=== PATIENT | female | born 1960 | race Caucasian/White ===

== ENCOUNTER 2016-04-10 04:37 | Observation (INO) ==
--- NOTE | 2016-04-10 05:05 | Emergency Department Note ---
I, Temitope Funez, am scribing for, and in the presence of, Rajwinder Capone DO 05: 01. I, Rajwinder Capone DO, personally performed the services described in this documentation, ascribed by Temitope Funez in my presence, and it is both accurate and complete . Arrival - Arrival ED Nursing Triage Note: pt to triage c/o n/v/d and reproducable chest wall pain since yesterday morning. pt denies fever, resp 18 , unlabored. sats 97 on room air Mode of Arrival: Wheelchair Limitations: No Limitations Source: Patient - History of Present Illness Onset (ago): hour(s) Consistency: constant Quality: sharp <Rajwinder Capone - Last Filed: 04/10/16 05:05> <Gordo Nobles - Last Filed: 04/10/16 07:51> - Arrival Chief Complaint: Nausea/Vomiting/Diarrhea Stated Complaint: CP/SOB/PAIN DOWN LEFT SIDE Time Seen by Provider: 04/10/16 04:51 - History of Present Illness HPI Narrative: Pt is a 55 y/o female that came to the ED with c/o reproducible chest pain that radiated down both arms and to her left leg that began about an hour ago. Pt rates her chest pain an 8/10. She states when she got to ED she felt SOB. Pt also reports she had breast surgery to remove a spot in [place] [address] Babcock that is painful. No other complaints/pain in ED. (Temitope Funez) Pt is a 55 y/o female that came to the ED with c/o reproducible chest pain that radiated down both arms and to her left leg that began about an hour ago. Pt rates her chest pain an 8/10. She states when she got to ED she felt SOB. Pt also reports she had breast surgery to remove a spot in October [address] Babcock that is painful. No other complaints/pain in ED. (Rajwinder Capone) Allergies/Adverse Reactions: Allergies Allergy/AdvReac Type Severity Reaction Status Date / Time atorvastatin [From Lipitor] Allergy Unknown/Unable Verified 04/10/16 04:44 to obtain azithromycin [From Zithromax] Allergy Unknown/Unable Verified 04/10/16 04:44 to obtain metformin Allergy ITCHING Verified 04/10/16 04:44 niacin Allergy ITCHING Verified 04/10/16 04:44 Penicillins AdvReac Nausea Verified 04/10/16 04:44 contrast dye Allergy Unknown/Unable Uncoded 04/10/16 04:44 to obtain Home Medications: Home Medications Medication Instructions Recorded Confirmed Type Escitalopram [Lexapro] 20 mg PO DAILY #30 tablet 11/14/15 04/10/16 Rx Gabapentin Cap/Tab [Neurontin 300 mg PO BEDTIME #90 capsule 11/14/15 04/10/16 Rx Cap/Tab] Levothyroxine Tab [Synthroid Tab] 200 mcg PO DAILY@0700 #30 tablet 11/14/15 Rx Lisinopril [Prinivil] 10 mg PO DAILY #30 tablet 11/14/15 04/10/16 Rx Topiramate [Topamax] 100 mg PO BID #60 tablet 11/14/15 04/10/16 Rx Hum Insulin NPH/Reg Insulin Hm 20 units SUBCUT AC 04/10/16 04/10/16 History [NovoLIN 70/30] Insulin NPH/Regular 70/30 [HumuLIN 15 unit SUBCUT BEDTIME 04/10/16 04/10/16 History 70/30] glyBURIDE [Glyburide] 10 mg PO BID 04/10/16 04/10/16 History Review of System - Review of System 12 point system: reviewed and no additional remarkable complaints except as stated - Review of System Constitutional: Absent: fever Cardiovascular: Present: chest pain, other (SOB) Gastrointestinal: Absent: abdominal pain Musculoskeletal: Present: arm pain (radiating left and right arm pain from chest pain), back pain (radiating left leg pain from chest pain) Skin: Absent: rash Neurological: Absent: headache <Rajwinder Capone - Last Filed: 04/10/16 05:05> Medical,Surgical,& Family Hx - Medical History Cardio: History of: Cardiac Dysrhythmia, Hypertension, Cardiovascular Problems ( ASD status post percutaneous repair. dr light last visit 2014.) Psychological: History of: Depression No history of: Anxiety Disorders, ADHD, Behavior Problems, Bipolar Disorder, Previous Suicide Attempt, Psychiatric/Substance Abuse Tx, Schizophrenia, Violent Behavior, Psychiatric Problems Neurology: History of: Cerebrovascular Accident (2010), Migraine, Seizures ( "silent seizures"), TIA HEENT: History of: Eye Problem (CATARACT BOTH EYES, glasses) Endocrine: History of: Diabetes Mellitus (IDDM), Diabetes Mellitus (NIDDM) (pt states she is not taking insulin can not afford), Dyslipidemia, Thyroid Disorder (TAKE SYNTHROID) Respiratory: History of: Obstructive Sleep Apnea (cpap) Hematology: History of: Bleeding Problems (PT IS ON COUMADIN), Clotting Problems No history of: Blood Transfusion Reaction Other: History of: Miscellaneous Medical Problems (IMMUNE DEFICIENCY DISORDER) No history of: Anesthesia Reactions (BUT DO NOT WAKE UP EASILY), Cancer, MRSA , Vancomycin-Resistant Enterococci - Surgical History Cardiac Surgeries: Sugical HX of: Cardiac Surgery (2004, PFO repair at [facility]) Neurologic Surgeries: Patient denies: Neurologic Surgery Abdominal Surgeries: Surgical HX of: Abdominal Surgery (HYSTERECTOMY 2001, D AND C) Reproductive Surgeries: Surgical HX of;: Breast Surgery (lt breast debridement) , Dilation and Curettage, Gynecologic Surgery, Hysterectomy - Family History Family History: Reports;: Family Cancer, Family Diabetes, Family Heart Disease, Family Hypertension, Family Stroke (MOTHER) - Social History Smoking Status: Never smoker Frequency of Alcohol Use: None Type of Drug Use: None <Rajwinder Capone - Last Filed: 04/10/16 05:05> Exam - General General appearance: alert, in no apparent distress, other (poor dentition) - Head Head exam: Present: atraumatic, normocephalic - Eye Eye exam: Present: PERRL, EOMI - ENT ENT exam: Present: mucous membranes moist. Absent: mucous membranes dry - Neck Neck exam: Present: full ROM. Absent: tenderness - Chest Chest inspection: Present: symmetric chest wall rise. Absent: tenderness - Respiratory Respiratory exam: Present: normal lung sounds bilaterally. Absent: respiratory distress - Cardiovascular Cardiovascular exam: Present: regular rate, normal rhythm, normal heart sounds - Abdominal Exam Abdominal exam: Present: soft. Absent: tenderness - Extremities Exam Extremities exam: Present: full ROM. Absent: tenderness - Back Exam Back exam: Present: full ROM. Absent: tenderness - Neurological Exam Neurological exam: Present: alert, oriented X3, CN II-XII intact. Absent: motor sensory deficit - Psychiatric Psychiatric exam: Present: normal affect, normal mood - Skin Skin exam: Present: warm, dry <Rajwinder Capone - Last Filed: 04/10/16 05:05> Vital Signs: Vital Signs Temperature 98.3 F 04/10/16 04:39 Pulse Rate 69 04/10/16 04:39 Respiratory Rate 18 04/10/16 04:39 Blood Pressure 126/82 04/10/16 04:39 O2 Sat by Pulse Oximetry 97 04/10/16 04:39 (Temitope Funez) (Rajwinder Capone) (Gordo Nobles) Course <Rajwinder Capone - Last Filed: 04/10/16 05:05> - Consultations Time: 07:51 <Gordo Nobles - Last Filed: 04/10/16 07:51> Course Narrative: Care assumed from Dr. Capone at 6 AM. (Gordo Nobles) - Consultations Consultation #1: Discussed with Dr. babcock. He will see the patient emergency department. (Gordo Nobles) Results - Labs CBC & BMP: 04/10/16 04:55 04/10/16 04:55 Lab Results: I have reviewed the patients labs - Diagnostic Findings Procedure: Chest x-ray: image reviewed by me, report reviewed by me (No cardiomegaly, no infiltrates, no pleural effusions.), Ultrasound: report reviewed by me (Gallbladder ultrasound: Fatty liver. Prominent caudate lobe. Tenderness over the gallbladder, without gallstones or wall thickening.) <Gordo Nobles - Last Filed: 04/10/16 07:51> Disposition <Rajwinder Capone - Last Filed: 04/10/16 05:05> Case discussed with: patient, patient's family Time of Disposition: 07:49 <Gordo Nobles - Last Filed: 04/10/16 07:51> Clinical Impression: RUQ abdominal pain, Cholestasis, Fatty liver, Previous ASD repair Condition: Stable
[2016-04-10] MEDS ORDERED: ASPIRIN 325 MG TABLET PO STA (05:07)
[2016-04-10] MEDS ORDERED: ASPIRIN 325 MG TABLET ONE ×2 (05:10→05:12)
[2016-04-10 05:16] LABS: Basophils # 0.1 10*3/uL (0.0-0.2); Basophils % 0.6 % (0.0-0.8); Eosinophils # 0.1 10*3/uL (0.0-0.87); Hematocrit 39.9 VOL% (35.7-47.0); Hemoglobin 13.6 GM/DL (12.0-16.0); Immature Granulocytes % 0.6 %; Immature Granulocytes Absolute 0.05 #; Lymphocytes # 2.3 10*3/uL (1.4-4.0); Lymphocytes % 27.7 % (21.3-54.2); Mean Corpuscular HGB Conc 34.1 GM/DL (32-36); Mean Corpuscular Hemoglobin 31 PG (27-34); Mean Corpuscular Volume 90.5 FL (87-102); Mean Platelet Volume 10.5 FL (9.6-12.0); Monocytes # 0.3 10*3/uL (0.11-0.8); Neutrophils # 5.4 10*3/uL (1.4-7.4); Neutrophils % 66.1 % (38.7-73.9); Platelet Count 236 10*3/uL (130-400); Red Blood Count 4.41 10*6/uL (3.8-5.5); Red Cell Distribution Width 12.5 % (9.3-17.3); White Blood Count 8.2 10*3/uL (4.5-13.71)
[2016-04-10 05:35] LABS: PT Patient Result 11.1 SECS; Partial Thromboplastin Time 26.9 SECS (0-40)
[2016-04-10 05:42] LABS: Alanine Aminotransferase 66 U/L (13-56); Albumin 3.3 G/DL (3.4-5.0); Alkaline Phosphatase 134 U/L (45-117); Aspartate Amino Transferase 55 U/L (0-37); Blood Urea Nitrogen 18 MG/DL (7-18); Glucose 266 MG/DL (74-106); Osmolality,Calculated 289.4 MOS/KG (273-304); Potassium 3.8 MMOL/L (3.5-5.1); Sodium 140 MMOL/L (136-145); Total Protein 7.2 G/DL (6.4-8.3); Troponin I Only < 0.015 NG/ML (0.00-0.045)
[2016-04-10] MEDS ORDERED: SODIUM CHLORIDE 0.9% 1,000 ML IV STA (05:59)
--- NOTE | 2016-04-10 06:58 | XRay Report ---
Portable chest. Indication: Chest pain. Comparison: December 21, 2015. The heart is normal in size. The pulmonary vasculature is normal. There is chronic elevation of the right hemidiaphragm. No consolidation, pneumothorax, or pleural effusion. Impression: Stable appearance of the chest. PROCEDURE INTERPRETED AT [facility] Final Report Signed by: Dr. Barbra Canada
--- NOTE | 2016-04-10 07:25 | Ultrasound Report ---
Gallbladder ultrasound. Indication: Right upper quadrant pain. Comparison: January 18, 2015. The liver is normal in size. There is prominence of the caudate lobe. There is fatty infiltration of the liver. There is no intrahepatic biliary ductal dilatation. No gallstones are seen. There is no gallbladder wall thickening or fluid around the gallbladder, but the patient is tender over the gallbladder. The common duct measures 3 mm. The right kidney presents a normal appearance. Most of the pancreas is visible and unremarkable. Impression: Fatty liver. Prominent caudate lobe. Tenderness over the gallbladder, without gallstones or wall thickening. PROCEDURE INTERPRETED AT [facility] DEPARTMENT OF RADIOLOGY Final Report Signed by: Dr. Barbra Canada
--- NOTE | 2016-04-10 08:31 | General Surg History&Physical ---
Assessment and Plan (1) Cholestasis Status: Acute Assessment and plan: This patient has right upper quadrant and midepigastric abdominal pain with the prior HIDA scan shows biliary dyskinesia. Her is been a lot of concern about her medical comorbidities and some of her somatization symptoms in the past and therefore medical management has been recommended for treatment of her gallbladder disease. However, her gallbladder disease does appear to be worsening symptomatically and I don't think that she is doing well with her current treatment. It is somewhat difficult to tell how much of her symptoms are from her gallbladder/think we should admit her, repeat her HIDA scan, and get pulmonary and cardiology consultation have both seen her in the past and given perioperative recommendations. If consultations demonstrated that the patient would be an acceptable risk for operative intervention in the HIDA scan demonstrates biliary dyskinesia and she has symptoms with injection of CCK, I would feel that offering laparoscopic cholecystectomy would be reasonable. If her HIDA scan doesn't show these features that I think we should pursue a GI source of her pain such as a peptic ulcer disease or gastritis and we may get gastroenterology to see her for this. Current Visit: Yes History of Present Illness Chief complaint: abdominal pain History of present illness: Ms. Christine is a 55 year old female with recurrent bronchitis and respiratory issues that were being treated by Dr. Blandon. She also has cardiology follow- up with Dr. Kimbrough and she has had ASD closed in the past. At a previous time she was told that she was not a good candidate for operative intervention for biliary dyskinesia but she has been having continued abdominal pain intermittently which worsened over the past several days and she presents to the ER today for evaluation of this. She states that her pain is debilitating is postprandial with nausea. Her workup in the ER was notable for a unremarkable EKG with normal troponins and her lab work was fairly unremarkable but she actually did have some derangements in her LFTs with transaminitis and mild alkaline phosphatase elevation. Home Medications Medication Instructions Recorded Confirmed Type Escitalopram [Lexapro] 20 mg PO DAILY #30 tablet 11/14/15 04/10/16 Rx Gabapentin Cap/Tab [Neurontin 300 mg PO BEDTIME #90 capsule 11/14/15 04/10/16 Rx Cap/Tab] Levothyroxine Tab [Synthroid Tab] 200 mcg PO DAILY@0700 #30 tablet 11/14/15 Rx Lisinopril [Prinivil] 10 mg PO DAILY #30 tablet 11/14/15 04/10/16 Rx Topiramate [Topamax] 100 mg PO BID #60 tablet 11/14/15 04/10/16 Rx Hum Insulin NPH/Reg Insulin Hm 20 units SUBCUT AC 04/10/16 04/10/16 History [NovoLIN 70/30] Insulin NPH/Regular 70/30 [HumuLIN 15 unit SUBCUT BEDTIME 04/10/16 04/10/16 History 70/30] glyBURIDE [Glyburide] 10 mg PO BID 04/10/16 04/10/16 History Allergies Allergy/AdvReac Type Severity Reaction Status Date / Time atorvastatin [From Lipitor] Allergy Unknown/Unable Verified 04/10/16 04:44 to obtain azithromycin [From Zithromax] Allergy Unknown/Unable Verified 04/10/16 04:44 to obtain metformin Allergy ITCHING Verified 04/10/16 04:44 niacin Allergy ITCHING Verified 04/10/16 04:44 Penicillins AdvReac Nausea Verified 04/10/16 04:44 contrast dye Allergy Unknown/Unable Uncoded 04/10/16 04:44 to obtain Medical,Surgical,& Family Hx - Medical History Cardio: History of: Cardiac Dysrhythmia, Hypertension, Cardiovascular Problems ( ASD status post percutaneous repair. dr kimbrough last visit 2014.) Psychological: History of: Depression No history of: Anxiety Disorders, ADHD, Behavior Problems, Bipolar Disorder, Previous Suicide Attempt, Psychiatric/Substance Abuse Tx, Schizophrenia, Violent Behavior, Psychiatric Problems Neurology: History of: Cerebrovascular Accident (2010), Migraine, Seizures ( "silent seizures"), TIA HEENT: History of: Eye Problem (CATARACT BOTH EYES, glasses) Endocrine: History of: Diabetes Mellitus (IDDM), Diabetes Mellitus (NIDDM) (pt states she is not taking insulin can not afford), Dyslipidemia, Thyroid Disorder (TAKE SYNTHROID) Respiratory: History of: Obstructive Sleep Apnea (cpap) Hematology: History of: Bleeding Problems (PT IS ON COUMADIN), Clotting Problems No history of: Blood Transfusion Reaction Other: History of: Miscellaneous Medical Problems (IMMUNE DEFICIENCY DISORDER) No history of: Anesthesia Reactions (BUT DO NOT WAKE UP EASILY), Cancer, MRSA , Vancomycin-Resistant Enterococci - Surgical History Cardiac Surgeries: Sugical HX of: Cardiac Surgery (2004, PFO repair at [facility]) Neurologic Surgeries: Patient denies: Neurologic Surgery Abdominal Surgeries: Surgical HX of: Abdominal Surgery (HYSTERECTOMY 2002, D AND C) Reproductive Surgeries: Surgical HX of;: Breast Surgery (lt breast debridement) , Dilation and Curettage, Gynecologic Surgery, Hysterectomy - Family History Family History: Reports;: Family Cancer, Family Diabetes, Family Heart Disease, Family Hypertension, Family Stroke (MOTHER) - Social History Smoking Status: Never smoker Frequency of Alcohol Use: None Type of Drug Use: None Exam - Constitutional Vitals: Period Temp Pulse Resp BP Sys/Dia Pulse Ox Last 24 Hr 98.3 F 69 18 126/82 97 General appearance: no acute distress, morbidly obese - Head Head exam: Present: normal inspection, normocephalic - Eye Eye exam: Present: EOMI. Absent: scleral icterus Pupils: Present: DEMETRIO - ENT ENT exam: Present: normal exam Mouth exam: Present: normal external inspection, normal voice - Neck Neck exam: Present: normal inspection, trachea midline - Respiratory Respiratory exam: Present: clear to auscultation bilaterally. Absent: accessory muscle use, chest wall tenderness - Cardiovascular Cardiovascular exam: Present: RRR. Absent: systolic murmur, tachycardia - GI/Abdominal GI/Abdominal exam: Present: normal bowel sounds, Rodrigez's sign, tenderness, soft. Absent: distended, rebound - Extremities Exam Extremities exam: Present: normal inspection, normal capillary refill - Back Exam Back exam: Present: normal inspection - Neurological Exam Neurological exam: Present: alert, oriented X3 Speech: Present: normal - Skin Skin exam: Present: normal color, warm - Constitutional Constitutional: Present: as per HPI - EENT Nose, mouth and throat: Present: as per HPI - Cardiovascular Cardiovascular: Present: as per HPI - Respiratory Respiratory: Present: as per HPI - Gastrointestinal Gastrointestinal: Present: as per HPI - Genitourinary Genitourinary: Present: as per HPI - Musculoskeletal Musculoskeletal: Present: as per HPI - Neurological Neurological: Present: as per HPI - Endocrine Endocrine: Present: as per HPI Hematologic/Lymphatic: Present: as per HPI Results - Labs CBC & BMP: 04/10/16 04:55 04/10/16 04:55
--- NOTE | 2016-04-10 08:36 | EKG Report ---
Stationary ECG Study [facility] ER Test Date: 04/10/2016 5:22:09 AM Pat Name: ARMANDO MCCULLOUGH Department: Room: Gender: F Lathe Machinist: : 1960 Requested by: Rajwinder Capnoe Order Number: [id number] Elvin MD: MARSHA MARTINEZ Intervals [place] Rate: 63 P: 48 ID: [id number] QRS: 137 QRSD: 100 T: 90 QT: 423 QTc: 430 Interpretive Statements SINUS RHYTHM WITH SINUS ARRHYTHMIA INCOMPLETE RIGHT BUNDLE BRANCH BLOCK EVIDENCE FOR AN ANTERIOR mi IS EQUIVOCAL AND NOTHING LOOKS NEW Electronically Signed On 04-12-16 09:35:18 BODY WORKER by MARSHA MARTINEZ [email or web address]
[2016-04-10] MEDS ORDERED: ACETAMINOPHEN 325 MG TABLET PO PRN (09:35)
[2016-04-10] MEDS ORDERED: KETOROLAC 15 MG/1 ML VIAL IV PRN (09:35)
[2016-04-10] MEDS ORDERED: ONDANSETRON 4 MG/2 ML VIAL IV PRN (09:35)
[2016-04-10] MEDS ORDERED: INFLUENZA VIRUS VACCINE 0.5 ML SYRINGE IM ONE (09:52)
[2016-04-10] MEDS: ESCITALOPRAM 10 MG TABLET PO SCH (10:40)
[2016-04-10] MEDS: LISINOPRIL 10 MG TABLET PO SCH (10:42)
[2016-04-10] MEDS: PANTOPRAZOLE 40 MG TABLET PO SCH (10:42)
[2016-04-10] MEDS: TOPIRAMATE 100 MG TABLET PO SCH ×2 (10:42→21:00)
--- NOTE | 2016-04-10 10:54 | XRay Report ---
Portable chest. Indication: Respiratory preoperative. Comparison: April 10, 2016. The heart is normal in size. The pulmonary vasculature is normal. There is chronic elevation of the right hemidiaphragm. No consolidation, pneumothorax, or pleural effusion. A tubelike linear probably metallic density again projects over the heart. Degenerative osteophytes are present within the thoracic spine. Impression: Chronic elevation of the right hemidiaphragm. Metallic tubelike structure projecting over the heart, has been seen previously. PROCEDURE INTERPRETED AT [facility] DEPARTMENT OF RADIOLOGY Final Report Signed by: Dr. Barbra Canada
[2016-04-10] MEDS: LACTATED RINGERS 1,000 ML IV SCH ×2 (11:23→20:59)
--- NOTE | 2016-04-10 13:27 | Nuclear Medicine Report ---
Nuclear medicine hepatobiliary exam. Indication: Generalized abdominal pain. Comparison: January 18, 2015. Following the intravenous administration of 5 mCi technetium 99m Choletec, hepatic excretion is prompt and uniform. Gallbladder activity can be seen by 15 minutes. Bowel activity can be seen by 20 minutes. Following the intravenous administration of 1.6 mcg sincalide, and ejection fraction was calculated. Ejection fraction is 32%. Normal is 40% or greater. Impression: Findings consistent with gallbladder dyskinesis. No evidence of acute cholecystitis. PROCEDURE INTERPRETED AT [facility] DEPARTMENT OF RADIOLOGY Final Report Signed by: Dr. Barbra Canada
[2016-04-10] MEDS ORDERED: GLUCAGON 1 MG VIAL IM PRN (14:33)
[2016-04-10] MEDS ORDERED: DEXTROSE 50% 25 GM/50 ML VIAL IV PRN (14:33)
--- NOTE | 2016-04-10 16:04 | Pulmonology Consult Note ---
Assessment and Plan (1) Status post patent foramen ovale closure Status: Acute Assessment and plan: The patient has had closure of the patent foramen ovale but otherwise it does not appear that she has much of heart disease. Current Visit: No (2) Seizure disorder Status: Acute Assessment and plan: She takes is her medicines and is stable. Current Visit: No (3) Somatization disorder Status: Acute Assessment and plan: She does have a lot of aches and pains in different complaints but appears to be stable at present. Current Visit: No (4) Hypothyroidism Status: Acute Assessment and plan: She is on thyroid replacement. Current Visit: No (5) Hypertension Status: Chronic Assessment and plan: She seems to be hemodynamically stable at present. Current Visit: No Qualifiers: Hypertension type: essential hypertension Qualified Code(s): I10 - Essential (primary) hypertension (6) Cholestasis Status: Acute Assessment and plan: He does have a sluggish gallbladder and some gallbladder symptoms. Current Visit: Yes (7) Uncontrolled diabetes mellitus Status: Acute Assessment and plan: Her diabetes fluctuates a good deal and will monitor her sugars. Current Visit: Yes (8) Preoperative evaluation to rule out surgical contraindication Status: Acute Assessment and plan: The patient has a lot of various psychological problems and complaints but seems to be stable at present. Her lungs are clear and her chest x-ray stable and she really doesn't have any lung problems. From a pulmonary standpoint she is okay to have surgery. Current Visit: Yes History of Present Illness Chief complaint: preoperative evaluation History of present illness: Ms. Christine is a 55 year old white female that apparently was admitted with nausea and abdominal pain and is felt to have gallbladder disease. She is being evaluated for possible lap cholecystectomy. The patient has had a lot of various complaints over the years is felt to have some psychosomatic problems. She has had various headaches and paresthesias and has had negative MRIs for CVA. She is a diabetic does not always control. She does have a history of hypertension and hypothyroidism. She's never had any lung problems and she is a nonsmoker. She has been followed by cardiology for quite a long time. She apparently had a patent foramen ovale that was closed. She does not have any coronary artery disease. The patient's mother is a patient of mine she gets a lot of her symptoms from her mother. Home Medications Medication Instructions Recorded Confirmed Type Escitalopram [Lexapro] 20 mg PO DAILY #30 tablet 11/14/15 04/10/16 Rx Levothyroxine Tab [Synthroid Tab] 200 mcg PO DAILY@0700 #30 tablet 11/14/15 Rx Lisinopril [Prinivil] 10 mg PO DAILY #30 tablet 11/14/15 04/10/16 Rx Topiramate [Topamax] 100 mg PO BID #60 tablet 11/14/15 04/10/16 Rx Gabapentin 300 mg PO BID 04/10/16 04/10/16 History Hum Insulin NPH/Reg Insulin Hm 20 units SUBCUT AC BREAKFAST 04/10/16 04/10/16 History [NovoLIN 70/30] Insulin NPH/Regular 70/30 [HumuLIN 15 unit SUBCUT BEDTIME 04/10/16 04/10/16 History 70/30] glyBURIDE [Glyburide] 10 mg PO BID 04/10/16 04/10/16 History Allergies Allergy/AdvReac Type Severity Reaction Status Date / Time atorvastatin [From Lipitor] Allergy Unknown/Unable Verified 04/10/16 04:44 to obtain azithromycin [From Zithromax] Allergy Unknown/Unable Verified 04/10/16 04:44 to obtain metformin Allergy ITCHING Verified 04/10/16 04:44 niacin Allergy ITCHING Verified 04/10/16 04:44 Penicillins AdvReac Nausea Verified 04/10/16 04:44 contrast dye Allergy Unknown/Unable Uncoded 04/10/16 04:44 to obtain - Constitutional Constitutional: Absent: anorexia, chills, fatigue, night sweats, weight loss - EENT Eyes: Absent: loss of vision Ears: Absent: decreased hearing Nose, mouth and throat: Absent: dysphagia, headache(s), sinus pressure - Cardiovascular Cardiovascular: Absent: chest pain at rest, dyspnea, edema, orthopnea, palpitations, PND - Respiratory Respiratory: Present: dyspnea on exertion. Absent: cough, wheezing, change in phlegm color - Gastrointestinal Gastrointestinal: Present: abdominal pain, nausea. Absent: change in bowel habits, dysphagia, vomiting - Genitourinary Genitourinary: Absent: difficulty urinating, urinary frequency - Musculoskeletal Musculoskeletal: Present: arthralgias, muscle weakness - Neurological Neurological: Present: behavioral changes, paresthesias. Absent: abnormal speech, focal weakness - Psychiatric Psychiatric: Present: anxiety Exam (Pulmonay) H&P - Constitutional Vitals: Period Temp Pulse Resp BP Sys/Dia Pulse Ox Last 24 Hr 97.9 F-98.0 F 61-65 16-18 106-124/61-69 97-98 General appearance: normal weight, no acute distress - Head Head exam: Present: normal inspection, normocephalic - Eye Eye exam: Present: EOMI. Absent: scleral icterus Pupils: Present: DEMETRIO - ENT ENT exam: Present: normal exam - Neck Neck exam: Present: normal inspection. Absent: lymphadenopathy, thyromegaly - Respiratory Respiratory exam: Present: clear to auscultation bilaterally. Absent: wheezes - Cardiovascular Cardiovascular exam: Present: regular rate and rhythm. Absent: gallop, systolic murmur - GI/Abdominal GI/Abdominal exam: Present: soft. Absent: distended, organomegaly, rebound - Extremities Exam Extremities exam: Absent: calf tenderness, edema - Neurological Exam Neurological exam: Present: alert - Psychiatric Psychiatric exam: Present: normal affect - Skin Skin exam: Present: warm, dry Medical,Surgical,& Family Hx - Medical History Cardio: History of: Cardiac Dysrhythmia, Hypertension, Cardiovascular Problems ( ASD status post percutaneous repair. dr light last visit 2014.) Psychological: History of: Depression No history of: Anxiety Disorders, ADHD, Behavior Problems, Bipolar Disorder, Previous Suicide Attempt, Psychiatric/Substance Abuse Tx, Schizophrenia, Violent Behavior, Psychiatric Problems Neurology: History of: Cerebrovascular Accident (2010), Migraine, Seizures ( "silent seizures"), TIA HEENT: History of: Eye Problem (CATARACT LT, glasses) Endocrine: History of: Diabetes Mellitus (IDDM), Diabetes Mellitus (NIDDM) (pt states she is not taking insulin can not afford), Dyslipidemia, Thyroid Disorder (TAKE SYNTHROID) Respiratory: History of: Obstructive Sleep Apnea (cpap) Hematology: History of: Bleeding Problems (PT IS ON COUMADIN), Clotting Problems No history of: Blood Transfusion Reaction Other: History of: Miscellaneous Medical Problems (IMMUNE DEFICIENCY DISORDER) No history of: Cancer, MRSA, Vancomycin-Resistant Enterococci Comment Only: Anesthesia Reactions (BUT DO NOT WAKE UP EASILY) - Surgical History Cardiac Surgeries: Sugical HX of: Cardiac Surgery (2004, PFO repair at [facility]) Neurologic Surgeries: Patient denies: Neurologic Surgery HEENT Surgeries: Surgical HX of: Eye Surgery (Rt cataract) Abdominal Surgeries: Surgical HX of: Abdominal Surgery (HYSTERECTOMY 2002, D AND C) Reproductive Surgeries: Surgical HX of;: Breast Surgery (lt breast debridement) , Dilation and Curettage, Gynecologic Surgery, Hysterectomy - Family History Family History: Reports;: Family Cancer, Family Diabetes, Family Heart Disease, Family Hypertension, Family Stroke (MOTHER) - Social History Smoking Status: Never smoker Frequency of Alcohol Use: None Type of Drug Use: None Results - Labs CBC & BMP: 04/10/16 04:55 04/10/16 04:55 - Diagnostic Findings Procedure: Chest x-ray: image reviewed by me, report reviewed by me (chest x- ray has a elevated right hemidiaphragm lung marcus are clear.)
[2016-04-10] MEDS: INSULIN REGULAR 100 UNIT/ML SUBCUT SCH ×2 (16:41→21:07)
--- NOTE | 2016-04-10 18:10 | Cardiology Consult Note ---
Deni Henry Lauren, RN, am scribing for, and in the presence of, Jefferson King MD 18:08. Assessment and Plan - Time spent with patient Time spent with patient: Less than 30 minutes (1) Cholestasis Status: Acute Assessment and plan: Mrs. Christine is planned for possible laparoscopic cholecystectomy if her HIDA scan demonstrates biliary dyskinesia and she has symptoms with injection of CCK. We were called in consultation with pulmonary for pre-operative risk assessment. Due to her medical comorbidities and her somatization symptoms in the past, medical management was recommended for her gallbladder disease. Current Visit: Yes (2) Hypertension Status: Chronic Current Visit: No Qualifiers: Hypertension type: essential hypertension Qualified Code(s): I10 - Essential (primary) hypertension (3) Somatization disorder Status: Acute Current Visit: No (4) Uncontrolled diabetes mellitus Status: Acute Current Visit: Yes (5) Status post patent foramen ovale closure Status: Acute Assessment and plan: This was felt to be the etiology of some of her TIAs and we will review the transthoracic echo. We will follow through this hospitalization. Current Visit: No (6) Hypothyroidism Status: Acute Current Visit: No (7) Seizure disorder Status: Acute Current Visit: No History of Present Illness - Data of Consult Patient: known to practice within the last 3 years (last saw Dr. Kimbrough in clinic 01/13/2014) Consult date: 04/10/16 Requesting Physician: Elver Babcock - Consult Narrative Reason for consult: Pre-operative evaluation History of present illness: Ms. Christine is a 55 year old female who is a patient of Dr. Kimbrough. She has not seen him in clinic since January 13, 2014 but has seen him numerous times during multiple hospitalizations. She has a history of chronic diffuse somatic complaints which have been evaluated in numerous facilities through the years. She has a history of chronic headaches/migraines/paresthesias, seizures, hypertension, uncontrolled diabetes with A1C in October.3, hyperlipidemia, hypothyroidism. She has a questionable history of TIAs and strokes but has had several MRI scans which have never shown any acute abnormality according to records. She has had multiple echocardiograms and myocardial perfusion studies done in the past which have been benign/normal. According to her records, her evaluation and management is complicated by the fact that she complains of fatigue, aches, pains, transient paresthesias, headaches, and numerous other somatic symptoms in virtually every office and/or hospital visit over the last decade. She was admitted to the hospital in January 2015 with biliary dyskinesia but had no acute distress, no elevation of her WBC, nor any other strong indications of an acute infectious cholecystitis. She was treated medically and had complete resolution of her symptoms prior to discharge at this time. She has since had worsening symptoms including debilitating pain postprandial with nausea. She is currently scheduled for HIDA scan today and possible laparoscopic cholecystectomy if her HIDA scan demonstrates biliary dyskinesia and she has symptoms with injection of CCK. We were called in consultation for pre-operative risk assessment. Upon exam today, she has mild tenderness to palpation of left upper quadrant. She reports symptoms of nausea and abdominal pain. She tells me she has chronic diabetic neuropathy in her feet for which she takes neurontin. She reports she had tingling in her left arm and left leg upon arrival today and reports shortness of breath associated with severe pain on the way to the emergency department this morning. She has just returned from radiology and is in good spirits, does not appear to be in any discomfort at this time, currently denies chest pain, palpitations, shortness of breath, dizziness, lightheadedness, or recent syncopal events. She also denies recent fever, chills, orthopnea, PND, or peripheral edema. This patient sees Dr. Kimbrough and has had multiple negative evaluations in the past. She does have strange neurologic symptoms that are not easily explainable. She had a PFO closure years ago and "they did not do it right" and is been sometimes in she's had a cardiac evaluation and I will review a 2-D echocardiogram. I don't think any further cardiac evaluation is warranted given the lack of symptoms and her history of multiple negative evaluations in the past. She has a generally positive review of systems and it's difficult to discern what if any of this could be cardiac in nature. CC: Elver Babcock MD - Home Medications and Allergies Home Medications: Home Medications Medication Instructions Recorded Confirmed Type Escitalopram [Lexapro] 20 mg PO DAILY #30 tablet 11/14/15 04/10/16 Rx Levothyroxine Tab [Synthroid Tab] 200 mcg PO DAILY@0700 #30 tablet 11/14/15 Rx Lisinopril [Prinivil] 10 mg PO DAILY #30 tablet 11/14/15 04/10/16 Rx Topiramate [Topamax] 100 mg PO BID #60 tablet 11/14/15 04/10/16 Rx Gabapentin 300 mg PO BID 04/10/16 04/10/16 History Hum Insulin NPH/Reg Insulin Hm 20 units SUBCUT AC BREAKFAST 04/10/16 04/10/16 History [NovoLIN 70/30] Insulin NPH/Regular 70/30 [HumuLIN 15 unit SUBCUT BEDTIME 04/10/16 04/10/16 History 70/30] glyBURIDE [Glyburide] 10 mg PO BID 04/10/16 04/10/16 History Allergies/Adverse Reactions: Allergies Allergy/AdvReac Type Severity Reaction Status Date / Time atorvastatin [From Lipitor] Allergy Unknown/Unable Verified 04/10/16 04:44 to obtain azithromycin [From Zithromax] Allergy Unknown/Unable Verified 04/10/16 04:44 to obtain metformin Allergy ITCHING Verified 04/10/16 04:44 niacin Allergy ITCHING Verified 04/10/16 04:44 Penicillins AdvReac Nausea Verified 04/10/16 04:44 contrast dye Allergy Unknown/Unable Uncoded 04/10/16 04:44 to obtain 12 point system: reviewed and no additional remarkable complaints except as stated Medical,Surgical,& Family Hx - Medical History Cardio: History of: Cardiac Dysrhythmia, Hypertension, Cardiovascular Problems ( ASD status post percutaneous repair. dr kimbrough last visit 2014.) Psychological: History of: Depression No history of: Anxiety Disorders, ADHD, Behavior Problems, Bipolar Disorder, Previous Suicide Attempt, Psychiatric/Substance Abuse Tx, Schizophrenia, Violent Behavior, Psychiatric Problems Neurology: History of: Cerebrovascular Accident (2010), Migraine, Seizures ( "silent seizures"), TIA HEENT: History of: Eye Problem (CATARACT LT, glasses) Endocrine: History of: Diabetes Mellitus (IDDM), Diabetes Mellitus (NIDDM) (pt states she is not taking insulin can not afford), Dyslipidemia, Thyroid Disorder (TAKE SYNTHROID) Respiratory: History of: Obstructive Sleep Apnea (cpap) Hematology: History of: Bleeding Problems (PT IS ON COUMADIN), Clotting Problems No history of: Blood Transfusion Reaction Other: History of: Miscellaneous Medical Problems (IMMUNE DEFICIENCY DISORDER) No history of: Cancer, MRSA, Vancomycin-Resistant Enterococci Comment Only: Anesthesia Reactions (BUT DO NOT WAKE UP EASILY) - Surgical History Cardiac Surgeries: Sugical HX of: Cardiac Surgery (2005, PFO repair at [facility]) Neurologic Surgeries: Patient denies: Neurologic Surgery HEENT Surgeries: Surgical HX of: Eye Surgery (Rt cataract) Abdominal Surgeries: Surgical HX of: Abdominal Surgery (HYSTERECTOMY 2002, D AND C) Reproductive Surgeries: Surgical HX of;: Breast Surgery (lt breast debridement) , Dilation and Curettage, Gynecologic Surgery, Hysterectomy - Family History Family History: Reports;: Family Cancer, Family Diabetes, Family Heart Disease, Family Hypertension, Family Stroke (MOTHER) - Social History Smoking Status: Never smoker Frequency of Alcohol Use: None Type of Drug Use: None Physical Examination Vital Signs Temp Pulse Resp BP Pulse Ox 98.3 F 69 18 126/82 97 04/10/16 04:39 04/10/16 04:39 04/10/16 04:39 04/10/16 04:39 04/10/16 04:39 General: Present: Appears Well, No Apparent Distress HEENT: Present: Normocephaly, Mucus Membranes Moist Neck: Present: Supple Neck, Midline Trachea, No Masses, No Bruit, No Lymphadenopathy, No Thyromegaly Cardiac: Present: Reg Rate and Rhythm, No Murmur Lungs: Present: Normal Exam, Normal Breath Sounds, No Wheeze, Rales, Rhonchi Neuro: Present: Grossly Intact. Absent: Resting Tremor, Essential Tremor Abdomen: Present: Soft, Active Bowel Sounds, No Masses, No Pulsations/Bruits, Tender (RUQ, mild tenderness to palpation) Skin: Present: Clear. Absent: Rash Musculoskeletal: Present: No Fluid Collection, Normal Range of Motion Extremities: Present: No Clubbing, No Cyanosis, No Edema, Normal Upper Extr. Pulses, Normal Lower Extr. Pulses, No Phlebitic Signs Result/EKG - Labs CBC & BMP: 04/10/16 04:55 04/10/16 04:55 Lab Results: I have reviewed the past 24 hour labs Labs: Laboratory Results - last 24 hr 04/10/16 04/10/16 11:37 16:00 POC Glucose 249 H 251 H Fernando Henry Wesley, MD, personally performed the services described in this documentation, ascribed by Brigitte Cheema RN in my presence, and it is both accurate and complete 808 .
[2016-04-10] MEDS ORDERED: GABAPENTIN 300 MG CAPSULE PO SCH (21:00)
[2016-04-11] MEDS ORDERED: ENOXAPARIN 40 MG/0.4 ML SYRINGE SUBCUT SCH (02:24)
[2016-04-11] MEDS: LACTATED RINGERS 1,000 ML IV SCH ×2 (05:04→09:41)
[2016-04-11] MEDS ORDERED: LEVOTHYROXINE 200 MCG TABLET PO SCH (07:00)
--- NOTE | 2016-04-11 07:25 | General Surgery Progress Note ---
Assessment and Plan (1) Cholestasis Status: Acute Assessment and plan: This patient had an ejection fraction of 32% and no symptoms with synthetic CCK injection. I do not believe her symptoms are for true gallbladder disease. I would not recommend any surgery at this time. I recommended an acid reducing medication therapy for possible gastritis which we will treat empirically. The patient has been seen by cardiology and pulmonary and an echocardiogram is pending. The patient can be discharged home today pending the results of the echocardiogram. She will not need follow-up with me. She can follow up with her primary care physician for any further recommendations regarding her abdominal pain. Current Visit: Yes Subjective Patient reports: Present: no new complaints, feels better, still having pain, tolerating a regular diet, afebrile. Absent: nausea, vomiting Narrative: The patient had a near normal HIDA scan yesterday with minimal depression of ejection fraction of the gallbladder. This is actually improved from a study she had in December 2014. She had no symptoms during injection of synthetic CCK. She was sleeping when I walked in and it took a little bit of effort to arouse her but as soon as she awoke she was complaining of fairly debilitating pain in her abdomen and her left breast Exam - Constitutional Vitals: Period Temp Pulse Resp BP Sys/Dia Pulse Ox Last 24 Hr 97.6 F-98.6 F 61-71 16-20 104-133/61-76 95-98 General appearance: no acute distress, over weight - Head Head exam: Present: normal inspection, normocephalic - Eye Eye exam: Present: EOMI Pupils: Present: DEMETRIO - ENT ENT exam: Present: normal exam Mouth exam: Present: normal external inspection, normal voice - Neck Neck exam: Present: normal inspection, trachea midline - Respiratory Respiratory exam: Present: clear to auscultation bilaterally. Absent: accessory muscle use, chest wall tenderness - Cardiovascular Cardiovascular exam: Present: RRR. Absent: systolic murmur, tachycardia - GI/Abdominal GI/Abdominal exam: Present: soft. Absent: tenderness, rebound - Extremities Exam Extremities exam: Present: normal inspection, normal capillary refill - Back Exam Back exam: Present: normal inspection - Neurological Exam Neurological exam: Present: alert, oriented X3 Speech: Present: normal - Skin Skin exam: Present: normal color, warm Results - Labs CBC & BMP: 04/10/16 04:55 04/10/16 04:55
[2016-04-11] MEDS: ESCITALOPRAM 10 MG TABLET PO SCH (08:42)
[2016-04-11] MEDS: INSULIN REGULAR 100 UNIT/ML SUBCUT SCH ×2 (08:42→11:41)
[2016-04-11] MEDS: PANTOPRAZOLE 40 MG TABLET PO SCH (08:42)
[2016-04-11] MEDS: TOPIRAMATE 100 MG TABLET PO SCH (08:42)
[2016-04-11] MEDS: LISINOPRIL 10 MG TABLET PO SCH (08:42)
--- NOTE | 2016-04-11 08:54 | Pulmonology Progress Note ---
Pulmonary - PN: Subj Interval history: Patient is a 55-year-old apparently has had some nausea and abdominal pain. She has been evaluated for gallbladder disease but the studies look okay. She is eating and seems to be doing okay. She does have a lot of psychosomatic complaints. Overall she is stable and will probably go home today. Exam (Progress Note) - Constitutional Vitals: Period Temp Pulse Resp BP Sys/Dia Pulse Ox Last 24 Hr 97.6 F-98.6 F 61-71 16-20 104-133/61-76 94-98 Exam: General appearance: normal weight, no acute distress, he is eating breakfast and looks comfortable. - Head Head exam: Present: normal inspection, normocephalic - Eye Eye exam: Present: EOMI. Absent: scleral icterus Pupils: Present: DEMETRIO - ENT ENT exam: Present: normal exam - Neck Neck exam: Present: normal inspection. Absent: lymphadenopathy, thyromegaly - Respiratory Respiratory exam: Present: clear to auscultation bilaterally. Absent: wheezes - Cardiovascular Cardiovascular exam: Present: regular rate and rhythm. Absent: gallop, systolic murmur - GI/Abdominal GI/Abdominal exam: Present: soft. She doesn't have any guarding or tenderness or rebound tenderness. - Extremities Exam Extremities exam: Absent: calf tenderness, edema - Neurological Exam Neurological exam: Present: alert - Psychiatric Psychiatric exam: Present: normal affect - Skin Skin exam: Present: warm, dry Results - Labs CBC & BMP: 04/10/16 04:55 04/10/16 04:55 Assessment and Plan (1) Status post patent foramen ovale closure Status: Acute Assessment and plan: The patient has had closure of the patent foramen ovale but otherwise it does not appear that she has much of heart disease. She is getting an echocardiogram today. Current Visit: No (2) Seizure disorder Status: Acute Assessment and plan: She takes is her medicines and is stable. Current Visit: No (3) Somatization disorder Status: Acute Assessment and plan: She does have a lot of aches and pains in different complaints but appears to be stable at present. Current Visit: No (4) Hypothyroidism Status: Acute Assessment and plan: She is on thyroid replacement. Current Visit: No (5) Hypertension Status: Chronic Assessment and plan: She seems to be hemodynamically stable at present. She will continue her blood pressure medicines. Current Visit: No Qualifiers: Hypertension type: essential hypertension Qualified Code(s): I10 - Essential (primary) hypertension (6) Cholestasis Status: Acute Assessment and plan: She does have a sluggish gallbladder but not a lot of other symptoms and she will not get a cholecystectomy this visit. Current Visit: Yes (7) Uncontrolled diabetes mellitus Status: Acute Assessment and plan: Her diabetes fluctuates a good deal and will monitor her sugars. Her glucose was 261 this morning. She does need to watch her glucoses. Current Visit: Yes (8) Preoperative evaluation to rule out surgical contraindication Status: Acute Assessment and plan: The patient has a lot of various psychological problems and complaints but seems to be stable at present. Her lungs are clear and her chest x-ray stable and she really doesn't have any lung problems. She can go home from a pulmonary standpoint. Current Visit: Yes
--- NOTE | 2016-04-11 10:19 | Discharge Summary ---
Hospital Course - Hospital Course Hospital Course: 55F w long medical history and multiple psychosomatic complaints admitted w nausea vomiting and abdominal pain. repeat HIDA scan showed EF 32% w no symptoms w injection of CCK. dr babcock did not recommend surgery at this time. pt may have gastritis so PPI recommended. dr king and dr lai both saw pt in consultation. dr king scheduled echo for outpatient. dc home w no follow up needed w dr babcock. - Time spent with patient Time with patient DS: Less than 30 minutes Specialty Discharge - Follow Up or Referrals Follow up with: Jefferson King MD [Physician] - 04/16/16 10:00 am (echo at [facility]) Discharge Plan - Discharge Data Disposition: Disch To Home/Self Care Condition at Discharge: Stable Discharge Diet: advance to your usual diet Activity: increase activity as tolerated Driving: other (no driving if taking pain pills) Contact your physician if you experience:: fever over 101, Nausea/Vomiting Wound / Dressing Care Instructions: ok to shower daily w mild soap and water, pat dry. ok to leave open to the air or cover prn w bandaids. - Discharge Medications Continue Levothyroxine Tab [Synthroid Tab] 200 mcg PO DAILY@0700 #30 tablet Lisinopril [Prinivil] 10 mg PO DAILY #30 tablet Escitalopram [Lexapro] 20 mg PO DAILY #30 tablet Topiramate [Topamax] 100 mg PO BID #60 tablet Hum Insulin NPH/Reg Insulin Hm [NovoLIN 70/30] 20 units SUBCUT AC BREAKFAST Insulin NPH/Regular 70/30 [HumuLIN 70/30] 15 unit SUBCUT BEDTIME glyBURIDE [Glyburide] 10 mg PO BID Gabapentin 300 mg PO BID - Follow Up or Referral Follow Up: Jefferson King MD [Physician] - 04/16/16 10:00 am ([facility] at [facility]) - Forms/Instructions Exam - Constitutional Vitals: Period Temp Pulse Resp BP Sys/Dia Pulse Ox Last 24 Hr 97.6 F-98.6 F 61-71 17-20 104-133/61-76 94-98 Discharge Results Labs on day of discharge: Labs from last 24 hours 04/11/16 04/10/16 04/10/16 06:53 20:07 16:00 POC Glucose 261 H 304 H 251 H 04/10/16 11:37 POC Glucose 249 H DS: Provider Date of admission: 04/10/16 08:22 Primary care physician: . No PCP Attending physician on admission: Elver Babcock MD Consults: 04/10/16 11:39 Consult to Pharmacy [CONS] Routine Reason for Pharmacy Consult: Adjust Meds Renal Funct Discharging clinician: MARIFER Pompa Expected date of discharge: 04/11/16
[2016-04-11 12:04] VITALS: BP 128/73
== END 2016-04-11 12:08 | disposition home or self-care (01) ==
LOC: N.ED 04:37 → N.EDINP 08:22 → INTOOBSV 08:22 → N.3E 09:00
PROVIDERS: ADMIT Surgery; ATTEND Surgery

== ENCOUNTER 2016-08-21 23:29 | Observation (INO) ==
[2016-08-22] MEDS ORDERED: MORPHINE 2 MG/1 ML SYRINGE IV STA (00:05)
[2016-08-22] MEDS ORDERED: NITROGLYCERIN 2% OINT 1 INCH/GM PACK TOP STA (00:05)
[2016-08-22] MEDS ORDERED: ASPIRIN 325 MG TABLET PO STA (00:05)
[2016-08-22] MEDS ORDERED: ALUM/MAG/SIMETH/LIDO VISC 1:1 30 ML BOTTLE PO STA (00:05)
[2016-08-22] MEDS ORDERED: ONDANSETRON 4 MG/2 ML VIAL IV STA (00:05)
--- NOTE | 2016-08-22 00:10 | Emergency Department Note ---
Sasha Henry Brittany, am scribing for, and in the presence of, Nir Middleton MD 00:07. Emi Henry Charles R, MD, personally performed the services described in this documentation, ascribed by Sandi Baez in my presence, and it is both accurate and complete . Arrival - Arrival Chief Complaint: Chest Pain Stated Complaint: chest pain ,nausea ,pain shooting down left side , ED Nursing Triage Note: C/C chest pain that radiates down left arm, Nauseated. Started about 22:00 Mode of Arrival: Ambulatory Limitations: No Limitations Source: Patient - History of Present Illness HPI Narrative: This is a 56 y/o white female, who presents to the ED for further evaluation of chest pain which started at 2100 today. She states she is SOB with the chest pain. She reports the chest pain is worse with exertion and better with rest. She states the chest pain moves into the left shoulder. Pt has no other complaints/pain in the ED. Pt has a PMHx of HTN, TIA, CVA, A-fib, seizures, diabetes, dyslipidemia, thyroid disorder, and obstructive sleep apnea. PT has had a PFO repair, eye surgery, abd surgery, breast surgery, D&C, gynecological surgery, and hysterectomy. Pt has a family medical Hx of cancer, HTN, heart disease, and stroke. Pt denies a social Hx. Onset (ago): hour(s) (Started at 2200 today) Consistency: constant Severity: moderate Allergies/Adverse Reactions: Allergies Allergy/AdvReac Type Severity Reaction Status Date / Time atorvastatin [From Lipitor] Allergy Unknown/Unable Verified 08/21/16 23:43 to obtain azithromycin [From Zithromax] Allergy Unknown/Unable Verified 08/21/16 23:43 to obtain clindamycin Allergy Vomiting Verified 08/21/16 23:43 metformin Allergy ITCHING Verified 08/21/16 23:43 niacin Allergy ITCHING Verified 08/21/16 23:43 Penicillins AdvReac Nausea Verified 08/21/16 23:43 contrast dye Allergy Unknown/Unable Uncoded 08/21/16 23:43 to obtain Home Medications: Home Medications Medication Instructions Recorded Confirmed Type Escitalopram [Lexapro] 20 mg PO DAILY #30 tablet 11/14/15 08/21/16 Rx Levothyroxine Tab [Synthroid Tab] 200 mcg PO DAILY@0700 #30 tablet 11/14/1509/01 Rx Lisinopril [Prinivil] 10 mg PO DAILY #30 tablet 11/14/15 08/21/16 Rx Topiramate [Topamax] 100 mg PO BID #60 tablet 11/14/15 08/21/16 Rx Gabapentin 300 mg PO BID 04/10/16 08/21/16 History Insulin NPH Hum/Reg Insulin Hm 20 units SUBCUT AC BREAKFAST 04/10/16 08/21/16 History [NovoLIN 70/30] glyBURIDE [Glyburide] 10 mg PO BID 04/10/16 08/21/16 History Fluticasone 50 Mcg Nasal [place] 2 spray BOTH NARES DAILY 07/16/16 08/21/16 History [Flonase Nasal [place]] Review of System - Review of System 12 point system: reviewed and no additional remarkable complaints except as stated - Review of System Cardiovascular: Present: chest pain, dyspnea on exertion Medical,Surgical,& Family Hx - Medical History Cardio: History of: Cardiac Dysrhythmia (A-fib), Hypertension, Cardiovascular Problems (ASD status post percutaneous repair. dr light last visit 2014.) Psychological: History of: Depression No history of: Anxiety Disorders, ADHD, Behavior Problems, Bipolar Disorder, Previous Suicide Attempt, Psychiatric/Substance Abuse Tx, Schizophrenia, Violent Behavior, Psychiatric Problems Neurology: History of: Cerebrovascular Accident (2010), Migraine, Seizures ( "silent seizures" LAST SEIZURE LAST WEEK.), TIA HEENT: History of: Eye Problem (CATARACT LT, glasses) Endocrine: History of: Diabetes Mellitus (IDDM), Diabetes Mellitus (NIDDM) (pt states she is not taking insulin can not afford), Dyslipidemia, Thyroid Disorder (TAKE SYNTHROID) Respiratory: History of: Obstructive Sleep Apnea (cpap) No history of: Respiratory Problems (FLU VAC- NO; PNEU VAC- NO.) Hematology: History of: Bleeding Problems (PT IS ON COUMADIN), Clotting Problems No history of: Blood Transfusion Reaction Other: History of: Miscellaneous Medical Problems (IMMUNE DEFICIENCY DISORDER) No history of: Cancer, MRSA, Vancomycin-Resistant Enterococci Comment Only: Anesthesia Reactions (BUT DO NOT WAKE UP EASILY) - Surgical History Cardiac Surgeries: Sugical HX of: Cardiac Surgery (2004, PFO repair at [facility]) Neurologic Surgeries: Patient denies: Neurologic Surgery HEENT Surgeries: Surgical HX of: Eye Surgery (Rt cataract) Abdominal Surgeries: Surgical HX of: Abdominal Surgery (HYSTERECTOMY 2002, D AND C) Reproductive Surgeries: Surgical HX of;: Breast Surgery (lt breast debridement) , Dilation and Curettage, Gynecologic Surgery, Hysterectomy - Family History Family History: Reports;: Family Cancer, Family Diabetes, Family Heart Disease, Family Hypertension, Family Stroke (MOTHER) - Social History Smoking Status: Never smoker Frequency of Alcohol Use: None Type of Drug Use: None Exam Vital Signs: Vital Signs Temperature 97.3 F L 08/21/16 23:38 Pulse Rate 78 08/21/16 23:38 Respiratory Rate 29 H 08/21/16 23:49 Blood Pressure 121/71 08/21/16 23:38 O2 Sat by Pulse Oximetry 97 08/21/16 23:38 - General General appearance: alert, in no apparent distress, other (Appearing older than stated age) - Head Head exam: Present: atraumatic, normocephalic, normal inspection - Eye Eye exam: Present: normal appearance, PERRL, EOMI. Absent: nystagmus, miosis, mydriasis - ENT ENT exam: Present: normal exam, normal oropharynx, mucous membranes moist, TM's normal bilaterally, normal external ear exam - Neck Neck exam: Present: normal inspection, full ROM, trachea midline. Absent: tenderness, meningismus, lymphadenopathy, thyromegaly - Chest Chest inspection: Present: normal inspection, symmetric chest wall rise. Absent : tenderness, rash, abscess - Respiratory Respiratory exam: Present: rales (Bibasilar Rales), rhonchi. Absent: normal lung sounds bilaterally, respiratory distress, stridor, wheezes - Cardiovascular Cardiovascular exam: Present: regular rate, normal rhythm, normal heart sounds. Absent: murmur, rubs, gallop, clicks, JVD - Abdominal Exam Abdominal exam: Present: soft, normal bowel sounds. Absent: distention, tenderness, guarding, rebound, rigidity - Rectal Exam Rectal exam: Present: deferred - Extremities Exam Extremities exam: Present: normal capillary refill, pedal edema (+1 pitting edema). Absent: joint swelling, calf tenderness - Back Exam Back exam: Present: normal inspection, full ROM. Absent: tenderness, muscle spasm, rashes - Neurological Exam Neurological exam: Present: alert, oriented X3, CN II-XII intact. Absent: motor sensory deficit - Psychiatric Psychiatric exam: Present: normal affect, normal mood. Absent: depressed, agitated, anxious, flat affect - Skin Skin exam: Present: warm, dry, intact, normal color. Absent: rash, cyanosis, diaphoresis, erythema, pallor, mottled Course - Consultations Consultation #1: Hospitalist will admit patient Time: 00:50 Results - Labs CBC & BMP: 08/22/16 00:00 08/22/16 00:00 Disposition Clinical Impression: Atypical chest pain, Diabetes mellitus, Chest pain, Uncontrolled diabetes mellitus Case discussed with: patient, patient's family Disposition: Still a Patient Condition: Stable Time of Disposition: 00:55
[2016-08-22 00:13] LABS: Basophils # 0.1 10*3/uL (0.0-0.2); Basophils % 0.8 % (0.0-0.8); Eosinophils # 0.1 10*3/uL (0.0-0.87); Eosinophils % 1.4 % (0.00-10.9); Hematocrit 40.8 VOL% (35.7-47.0); Hemoglobin 13.8 GM/DL (12.0-16.0); Immature Granulocytes % 0.7 %; Immature Granulocytes Absolute 0.05 #; Lymphocytes # 2.4 10*3/uL (1.4-4.0); Lymphocytes % 32.1 % (21.3-54.2); Mean Corpuscular HGB Conc 33.8 GM/DL (32-36); Mean Corpuscular Hemoglobin 29 PG (27-34); Mean Corpuscular Volume 86.8 FL (87-102); Monocytes # 0.4 10*3/uL (0.11-0.8); Monocytes % 4.8 % (1.7-12.7); Neutrophils # 4.4 10*3/uL (1.4-7.4); Neutrophils % 60.2 % (38.7-73.9); Platelet Count 233 T/CUMM (130-400); Red Cell Distribution Width 12.7 % (9.3-17.3); White Blood Count 7.3 T/CUMM (4-12)
[2016-08-22] MEDS ORDERED: ALUM/MAG/SIMETH/LIDO VISC 1:1 30 ML BOTTLE PO ONE (00:20)
[2016-08-22] MEDS ORDERED: MORPHINE 2 MG/1 ML SYRINGE ONE (00:20)
[2016-08-22] MEDS ORDERED: ASPIRIN 325 MG TABLET ONE (00:20)
[2016-08-22] MEDS ORDERED: NITROGLYCERIN 2% OINT 1 INCH/GM PACK TOP ONE (00:20)
[2016-08-22] MEDS ORDERED: ONDANSETRON 4 MG/2 ML VIAL ONE (00:20)
[2016-08-22 00:21] LABS: D-Dimer <= 0.5 MG/L FEU; PT Patient Result 10.7 SECS
[2016-08-22 00:27] LABS: Magnesium 1.9 MG/DL (1.8-2.4)
[2016-08-22 00:29] LABS: Albumin 3.6 G/DL (3.4-5.0); Bilirubin,Total 0.4 MG/DL (0.2-1.0); Calcium 9.2 MG/DL (8.5-10.1); Osmolality,Calculated 287.5 MOS/KG (273-304); Potassium 4.2 MMOL/L (3.5-5.1); Total Protein 7.3 G/DL (6.4-8.3)
[2016-08-22] MEDS ORDERED: INSULIN REGULAR 100 UNIT/ML IV STA (00:40)
[2016-08-22] MEDS ORDERED: INSULIN REGULAR 100 UNIT/ML ONE (01:08)
[2016-08-22 01:11] LABS: Apearance,Urine CLEAR (Clear); Bilirubin,Urine Negative (Negative); Blood, Urine Negative (Negative); Glucose,Urine (UA) >=500 mg/dL (Negative); Hyaline Casts,Urine 1 /LPF (0-3); Ketones,Urine 5 mg/dL (Negative); Mucus,Urine Occasional /LPF (Occasional); Nitrite,Urine Negative (Negative); Protein,Urine Negative; RBC,Urine 1 /HPF (0-4); Squamous Epithelial Cell,Urine Few /HPF (0-10); Urine Color Yellow (Yellow); Urine Specific Gravity 1.028 (1.001-1.035); Urine Urobilinogen < 2.0 EU/DL (0.2-1.0); WBC,Urine 3 /HPF (0-6)
[2016-08-22 01:20] LABS: Barbiturates Screen,Urine Negative (Negative); Benzodiazepines Screen,Urine Negative (Negative); Cannabinoid Screen,Urine Negative (Negative); Opiate Screen,Urine Positive (Negative); Phencyclidine Screen,Urine Negative (Negative)
[2016-08-22] MEDS ORDERED: MORPHINE 2 MG/1 ML SYRINGE IV PRN (01:28)
[2016-08-22] MEDS ORDERED: INSULIN LISPRO 100 UNIT/ML SUBCUT ONE (01:28)
[2016-08-22 01:50] LABS: Risk Ratio 6.28; VLDL CHOLESTEROL 121.8 MG/DL
--- NOTE | 2016-08-22 02:23 | Hospitalist History & Physical ---
Assessment and Plan (1) Hypothyroidism Status: Acute Current Visit: No (2) Seizure disorder Status: Acute Current Visit: No (3) Obstructive sleep apnea Status: Chronic Current Visit: No (4) Hypertension Status: Chronic Current Visit: No Qualifiers: Hypertension type: essential hypertension Qualified Code(s): I10 - Essential (primary) hypertension (5) Cataract, left eye Status: Resolved Current Visit: No (6) Atypical chest pain Status: Acute Current Visit: Yes (7) Uncontrolled diabetes mellitus Status: Acute Assessment and plan: Our plan for this patient will be admission to our service. We will draw serial cardiac enzymes consult cardiology keep her n.p.o. for now we will provide her with IV fluids during the night and Accu-Cheks. Patient received some IV insulin try to bring her glucose down. Will consult cardiology. Patient normally sees Dr. Light. Patient will be using her home CPAP machine Current Visit: Yes History of Present Illness Chief complaint: Chest pain History of present illness: Ms. Christine is a 56 year old female with past medical history of diabetes, atrial fibrillation, obstructive sleep apnea, thyroid disorder, increased cholesterol, migraines, neuropathy, depression and TIAs who is in normal state of health till today. Patient reports his chest pain has been coming and going. When I asked her if it was sharp or dull she said both. She says she feels short of breath when it comes on. She denies diaphoresis. She says it radiates to her left arm and left leg. There is no exertional component. She reports generally she feels weak. She came to our emergency room for further evaluation I was consulted to admit her. Home Medications Medication Instructions Recorded Confirmed Type Escitalopram [Lexapro] 20 mg PO DAILY #30 tablet 11/14/15 08/21/16 Rx Levothyroxine Tab [Synthroid Tab] 200 mcg PO DAILY@0700 #30 tablet 11/14/1509/01 Rx Lisinopril [Prinivil] 10 mg PO DAILY #30 tablet 11/14/15 08/21/16 Rx Topiramate [Topamax] 100 mg PO BID #60 tablet 11/14/15 08/21/16 Rx Gabapentin 300 mg PO BID 04/10/16 08/21/16 History Insulin NPH Hum/Reg Insulin Hm 20 units SUBCUT AC BREAKFAST 04/10/16 08/21/16 History [NovoLIN 70/30] glyBURIDE [Glyburide] 10 mg PO BID 04/10/16 08/21/16 History Fluticasone 50 Mcg Nasal [place] 2 spray BOTH NARES DAILY 07/16/16 08/21/16 History [Flonase Nasal [place]] Allergies Allergy/AdvReac Type Severity Reaction Status Date / Time atorvastatin [From Lipitor] Allergy Unknown/Unable Verified 08/21/16 23:43 to obtain azithromycin [From Zithromax] Allergy Unknown/Unable Verified 08/21/16 23:43 to obtain clindamycin Allergy Vomiting Verified 08/21/16 23:43 metformin Allergy ITCHING Verified 08/21/16 23:43 niacin Allergy ITCHING Verified 08/21/16 23:43 Penicillins AdvReac Nausea Verified 08/21/16 23:43 contrast dye Allergy Unknown/Unable Uncoded 08/21/16 23:43 to obtain Medical,Surgical,& Family Hx - Medical History Cardio: History of: Cardiac Dysrhythmia (A-fib), Hypertension, Cardiovascular Problems (ASD status post percutaneous repair. dr light last visit 2014.) Psychological: History of: Depression No history of: Anxiety Disorders, ADHD, Behavior Problems, Bipolar Disorder, Previous Suicide Attempt, Psychiatric/Substance Abuse Tx, Schizophrenia, Violent Behavior, Psychiatric Problems Neurology: History of: Cerebrovascular Accident (2010), Migraine, Seizures ( "silent seizures" LAST SEIZURE LAST WEEK.), TIA HEENT: History of: Eye Problem (CATARACT LT, glasses) Endocrine: History of: Diabetes Mellitus (IDDM), Diabetes Mellitus (NIDDM) (pt states she is not taking insulin can not afford), Dyslipidemia, Thyroid Disorder (TAKE SYNTHROID) Respiratory: History of: Obstructive Sleep Apnea (cpap) No history of: Respiratory Problems (FLU VAC- NO; PNEU VAC- NO.) Hematology: History of: Bleeding Problems (PT IS ON COUMADIN), Clotting Problems No history of: Blood Transfusion Reaction Other: History of: Miscellaneous Medical Problems (IMMUNE DEFICIENCY DISORDER) No history of: Cancer, MRSA, Vancomycin-Resistant Enterococci Comment Only: Anesthesia Reactions (BUT DO NOT WAKE UP EASILY) - Surgical History Cardiac Surgeries: Sugical HX of: Cardiac Surgery (2004, PFO repair at [facility]) Neurologic Surgeries: Patient denies: Neurologic Surgery HEENT Surgeries: Surgical HX of: Eye Surgery (Rt cataract) Abdominal Surgeries: Surgical HX of: Abdominal Surgery (HYSTERECTOMY 2002, D AND C) Reproductive Surgeries: Surgical HX of;: Breast Surgery (lt breast debridement) , Dilation and Curettage, Gynecologic Surgery, Hysterectomy - Family History Family History: Reports;: Family Cancer, Family Diabetes, Family Heart Disease, Family Hypertension, Family Stroke (MOTHER) - Social History Smoking Status: Never smoker Frequency of Alcohol Use: None Type of Drug Use: None 12 point system: reviewed and no additional remarkable complaints except as stated Exam - Constitutional Vitals: Period Temp Pulse Resp BP Sys/Dia Pulse Ox Last 24 Hr 97.3 F-97.3 F 74-78 16-29 121-121/71-71 97 - General General appearance: alert, in no apparent distress, - Head Head exam: Present: atraumatic, normocephalic, normal inspection - Eye Eye exam: Present: normal appearance, PERRL, EOMI. - ENT ENT exam: Present: normal exam, normal oropharynx, mucous membranes moist, TM's normal bilaterally, normal external ear exam - Neck Neck exam: Present: normal inspection, full ROM, trachea midline. - Chest Chest inspection: Present: normal inspection, symmetric chest wall rise. Absent : tenderness, rash, abscess - Respiratory Respiratory exam: Present: Grossly clear - Cardiovascular Cardiovascular exam: Present: regular rate, normal rhythm, normal heart sounds. - Abdominal Exam Abdominal exam: Present: soft, normal bowel sounds. - Rectal Exam Rectal exam: Present: deferred - Extremities Exam Extremities exam: Present: normal capillary refill, pedal edema (+1 pitting edema). . - Back Exam Back exam: Present: normal inspection, full ROM. . - Neurological Exam Neurological exam: Present: alert, oriented X3, CN II-XII intact. . - Psychiatric Psychiatric exam: Present: normal affect, normal mood. . - Skin Skin exam: Present: warm, dry, intact, normal color. . Results - Labs CBC & BMP: 08/22/16 00:00 08/22/16 00:00
[2016-08-22] MEDS ORDERED: GLUCAGON 1 MG VIAL IM PRN ×2 (02:47→11:53)
[2016-08-22] MEDS ORDERED: DEXTROSE 50% 25 GM/50 ML VIAL IV PRN ×2 (02:47→11:53)
[2016-08-22] MEDS: SODIUM CHLORIDE 0.45% 1,000 ML IV SCH ×2 (03:25→14:57)
--- NOTE | 2016-08-22 05:58 | EKG Report ---
Stationary ECG Study [facility] Test Date: 08/22/2016 3:54:32 AM Pat Name: ARMANDO MCCULLOUGH Department: Room: 296 Gender: F Application Administrator: : 1960 Requested by: Nir Greene Order Number: [id number] Elvin MD: MARSHA MARTINEZ Intervals [place] Rate: 65 P: 76 [place]: 164 QRS: 117 QRSD: 100 T: 98 QT: 420 QTc: 431 Interpretive Statements SINUS RHYTHM WITH SINUS ARRHYTHMIA POSSIBLE RIGHT VENTRICULAR HYPERTROPHY CANNOT RULE OUT ANTERIOR INFARCT, AGE UNDETERMINED POSSIBLE INFERIOR EPICARDIAL INJURY WARNING: DATA QUALITY MAY AFFECT INTERPRETATION Electronically Signed On 08-22-16 17:08:10 CDT by MARSHA MARTINEZ [email or web address]
[2016-08-22 06:36] LABS: Risk Ratio 5.4; VLDL CHOLESTEROL 71.6 MG/DL
--- NOTE | 2016-08-22 06:37 | EKG Report ---
Stationary ECG Study [facility] ER Test Date: 08/21/2016 11:38:20 PM Pat Name: ARMANDO MCCULLOUGH Department: Room: Gender: F Jigger Artisan: Jesús : 1960 Requested by: Nir Greene Order Number: [id number] Reading MD: MARSHA MARTINEZ Intervals [place] Rate: 64 P: 69 [place]: 159 QRS: 98 QRSD: 91 T: 94 QT: 419 QTc: 428 Interpretive Statements SINUS RHYTHM WITH MARKED SINUS ARRHYTHMIA MODERATE RIGHT AXIS DEVIATION LOW QRS VOLTAGE IN LIMB LEADS CANNOT RULE OUT ANTERIOR INFARCT, PROBABLY OLD POSSIBLE INFERIOR EPICARDIAL INJURY Electronically Signed On 08-22-16 17:07:40 CDT by MARSHA MARTINEZ [email or web address]
--- NOTE | 2016-08-22 07:10 | XRay Report ---
XR chest 2V Indication: Chest pain Comparison: Chest x-ray dated June 02, 2016 Technique: Frontal and lateral views of the chest. Findings: The cardiomediastinal silhouette is stable in configuration. Chronic change of the lungs without focal consolidation, pleural effusion, or pneumothorax. Continued elevation of the right hemidiaphragm. Visualized osseous and surrounding soft tissue structures appear grossly unchanged. Chronic displaced fractures of posterior lateral left ribs 8 and 9. Mild S-shaped curvature of the spine. IMPRESSION: Stable chest x-ray without acute cardiopulmonary process demonstrated. PROCEDURE INTERPRETED AT [facility] DEPARTMENT OF RADIOLOGY Final Report Signed by: Dr Cuba Lopez
--- NOTE | 2016-08-22 08:10 | EKG Report ---
Stationary ECG Study [facility] Test Date: 08/22/2016 8:10:16 AM Pat Name: ARMANDO MCCULLOUGH Department: Room: 296 Gender: F Timber Bucker: MAGNOLIA : 1960 Requested by: Nir Greene Order Number: [id number] Reading MD: MARSHA MARTINEZ Intervals [place] Rate: 58 P: 46 [place]: 177 QRS: 56 QRSD: 96 T: 90 QT: 426 QTc: 422 Interpretive Statements SINUS RHYTHM WITH MARKED SINUS ARRHYTHMIA LOW QRS VOLTAGE IN EXTREMITY LEADS POSSIBLE ANTERIOR MYOCARDIAL INFARCTION, OF INDETERMINATE AGE INTERPRETATION BASED ON A DEFAULT AGE OF 40 YEARS Electronically Signed On 08-22-16 17:10:04 CDT by MARSHA MARTINEZ [email or web address]
[2016-08-22] MEDS: INSULIN LISPRO 100 UNIT/ML SUBCUT SCH ×4 (08:23→21:56)
[2016-08-22] MEDS: NITROGLYCERIN 2% OINT 1 INCH/GM PACK TOP SCH ×3 (09:36→17:48)
[2016-08-22] MEDS: LEVOTHYROXINE 200 MCG TABLET PO SCH (09:38)
[2016-08-22] MEDS: FLUTICASONE 50 MCG NASAL SPRAY 16 GM BOTTLE BOTH NARES SCH (09:38)
[2016-08-22] MEDS: TOPIRAMATE 100 MG TABLET PO SCH ×2 (09:39→21:56)
[2016-08-22] MEDS: ASPIRIN EC 325 MG TABLET PO SCH (09:39)
[2016-08-22] MEDS: LISINOPRIL 10 MG TABLET PO SCH (09:39)
[2016-08-22] MEDS: GABAPENTIN 300 MG CAPSULE PO SCH ×2 (09:39→21:57)
[2016-08-22] MEDS: ESCITALOPRAM 10 MG TABLET PO SCH (09:39)
--- NOTE | 2016-08-22 11:00 | EKG Report ---
Stationary ECG Study [facility] ER Test Date: 08/21/2016 11:48:14 PM Pat Name: ARMANDO MCCULLOUGH Department: Room: 296 Gender: F Opal Miner: : 1960 Requested by: Nir Greene Order Number: [id number] Elvin MD: MARSHA MARTINEZ Intervals [place] Rate: 66 P: 81 [place]: 177 QRS: 112 QRSD: 96 T: 100 QT: 411 QTc: 424 Interpretive Statements SINUS RHYTHM WITH MARKED SINUS ARRHYTHMIA ABNORMAL RIGHT AXIS DEVIATION CANNOT RULE OUT ANTERIOR INFARCT, PROBABLY OLD Electronically Signed On 08-22-16 17:07:44 CDT by MARSHA MARTINEZ [email or web address]
[2016-08-22] MEDS ORDERED: GABAPENTIN 100 MG CAPSULE PO SCH (11:55)
[2016-08-22] MEDS: NAPROXEN 250 MG TABLET PO SCH ×2 (12:40→21:56)
[2016-08-22] MEDS: ACETAMINOPHEN 325 MG TABLET PO SCH ×2 (12:40→21:56)
[2016-08-22] MEDS: traMADol 50 MG TABLET PO SCH ×2 (12:41→21:57)
--- NOTE | 2016-08-22 15:39 | Hospitalist Progress Note ---
Hospitalist: Subjective Interval history: Pt reports intermittent cp described as pressure. No fever. No SOB. No nausea or vomiting. No diaphoresis. C/O fullness of left eye Exam - Constitutional Vitals: Period Temp Pulse Resp BP Sys/Dia Pulse Ox Last 24 Hr 96.6 F-97.6 F 67-81 16-29 90-121/30-71 95-99 Exam: A and O x 3 RRR no M CTAB nonlabored Soft, NT, ND, +BS Warm no c/c/e Results - Labs CBC & BMP: 08/22/16 00:00 08/22/16 00:00 - Impressions (1) Hypothyroidism Status: Acute Current Visit: No (2) Seizure disorder Status: Acute Current Visit: No (3) Obstructive sleep apnea Status: Chronic Current Visit: No (4) Hypertension Status: Chronic Current Visit: No Qualifiers: Hypertension type: essential hypertension Qualified Code(s): I10 - Essential (primary) hypertension (5) Cataract, left eye Status: Resolved Current Visit: No (6) Atypical chest pain Status: Acute Current Visit: Yes (7) Uncontrolled diabetes mellitus Status: Acute Assessment and plan: Serial cardiac enzymes negative so far. F/U Cards recs. Cont nitro topically, ASA Resume home eye drops and resume scheduled insulin Patient will be using her home CPAP machine Dispo: pending cards recs D/W pt and nurse and all questions answered.
--- NOTE | 2016-08-22 21:43 | ECHO Report ---
Alma Christine Exam Date: 08/22/2016 14:18 Referring Physician: Technologist: Katie Kebede Age: 56 Ht (in): 70 Wt (lb): 197 Gender: F Exam Location: [facility] Echo Indications: HX. PFO repair, hypomagnesemia, hyperlipidemia, HTN, diabetes, chest pain, ADINA BP: 111 / 55 HR: 67 Rhythm: Sinus Technical Quality: S/P Cath IMPRESSIONS Mild concentric left ventricular hypertrophy with diastolic dysfunction. Left ventricular ejection fraction is estimated at 60-65 %. Mild RV enlargement. Normal RV systolic function. Mild LORENA; The PFO occluder is seen in the apical four-chamber view. No obvious leak around the occluder is seen. Mild mitral valve regurgitation. Mild aortic valve sclerosis without stenosis. MEASUREMENTS (Male / Female) Normal Values 2D ECHO LV Diastolic Diameter PLAX 3.3 cm 4.2 - 5.9 / 3.9 - 5.3 cm LV Systolic Diameter PLAX 1.7 cm LV Fractional Shortening PLAX 49.4 % IVS Diastolic Thickness 1.4 cm 0.6 - 1.0 / 0.6 - 0.9 cm LVPW Diastolic Thickness 1.1 cm 0.6 - 1.0 / 0.6 - 0.9 cm RV Internal Dim ED PLAX 2.2 cm Aortic Root Diameter 2.2 cm LA Systolic Diameter LX 2.9 cm 3.0 - 4.0 / 2.7 - 3.8 cm DOPPLER TR Peak Velocity 182.0 cm/s TR Peak Gradient 13.2 mmHg FINDINGS Left Ventricle Moderately increased septal wall thickness. Mildly increased posterior wall thickness. Mild concentric left ventricular hypertrophy with diastolic dysfunction. Left ventricular ejection fraction is estimated at 60-65 %. Right Ventricle Mild RV enlargement. Normal RV systolic function Right Atrium Mild LORENA; The PFO occluder is seen in the apical four-chamber view. No obvious leak around the occluder is seen. Left Atrium Normal left atrial size. Mitral Valve Mild mitral valve sclerosis. Mild mitral valve regurgitation. Aortic Valve Mild aortic valve sclerosis without stenosis. Tricuspid Valve Morphologically normal tricuspid valve. Pulmonic Valve Morphologically normal pulmonic valve. Trace pulmonary valve regurgitation. Pericardium No pericardial effusion. Aorta Normal size aortic root and proximal ascending aorta. Gordon Luis MD (Electronically Signed) Final Date: 22 August 2016 21:42
[2016-08-22] MEDS ORDERED: POTASSIUM CHLORIDE RIDER 10 MEQ in PREMIX 1 EACH IV PRN (23:59)
[2016-08-22] MEDS ORDERED: MAGNESIUM SULF RIDER 2 GM in PREMIX 1 EACH IV PRN (23:59)
--- NOTE | 2016-08-23 00:07 | Cardiology Consult Note ---
Kris Henry April RN, am scribing for, and in the presence of, Gordon Luis MD 00:05. Assessment and Plan - Time spent with patient Time spent with patient: Greater than 30 minutes (Due to assessment, planning, documentation, medication review) (1) Chest pain Status: Acute Assessment and plan: She is having left chest pain radiating to her left arm into her left leg. She is convinced that is her heart. She is worried is in her heart. She is on an SSRI. Differential diagnoses would include muscle skeletal, GI, or anxiety related, or CAD Plan/recommendation: echo/Doppler-reevaluate PFO closure Continue SSRI Take an aspirin per day Treat chest wall pain-Tylenol, tramadol, gabapentin Continue proton pump inhibitor She wants a heart catheter. --This will be one way to evaluate the heart and may alleviate some of her anxiety The risks, benefits, alternatives were discussed with the patient. She understands and wishes to proceed. It'll be done tomorrow by Dr. King My thank you for allowing to Participate in this patient's care. Of note, I saw and evaluated the patient on 08/22/16 at about 2 PM.My final note is being done slightly later. Current Visit: Yes (2) Diabetes mellitus Status: Chronic Current Visit: Yes (3) Hyperlipidemia Status: Chronic Current Visit: Yes (4) Hypertension Status: Chronic Current Visit: Yes Qualifiers: Hypertension type: essential hypertension Qualified Code(s): I10 - Essential (primary) hypertension (5) Obstructive sleep apnea Status: Chronic Assessment and plan: She reports she uses CPAP nightly. Current Visit: Yes (6) Status post patent foramen ovale closure Status: Chronic Assessment and plan: Done at [facility] in 2004. Current Visit: No History of Present Illness - Data of Consult Patient: known to practice within the last 3 years Consult date: 08/22/16 Requesting Physician: Franck Esparza - Consult Narrative Reason for consult: Chest pain History of present illness: [employer] Officer: Dr. Kimbrough Ms. Christine is a 56 year old female who is seen by Dr. Kimbrough with a history of edge fibrillation, hypertension, depression, CVA, migraine, seizures, IDDM, dyslipidemia, thyroid disorder, and sleep apnea (uses CPAP). She saw Dr. King in the hospital in March for surgical clearance for possible cholecystectomy (which was not known). At discharge Dr. King schedule her for outpatient echocardiogram with Dr. Kimbrough. This was not done, she stated it was scheduled to have her mother's and she never rescheduled. Most recent echo that I can find was done in February [address] Kimbrough's office with ejection fraction 55-60%. Surgical history includes PFO closure at [facility] in 2004, bilateral cataracts, hysterectomy, and left breast debridement. Family history includes hypertension in parents and siblings, cancer in mother, heart disease in father, and diabetes in parents and sister. She reports she is a lifetime non-smoker. She lives with her , uses a cane at times to assist with ambulation. She reports she is unsteady and has had numerous falls. The patient says she developed chest pain last night around 9 or 930. She describes it as both sharp and dull pain that starts in the center of her chest and radiates to her left arm and left leg. She has this pain at rest. She reports that it comes and goes when it was at its worst it was 8 or 9 on a scale of 1-10. She can identify no particular triggers, however it was somewhat eased after receiving Nitro-Bid paste in the emergency department last evening. She has also had shortness of breath at rest and nausea associated with this. EKG on admission showed sinus rhythm with heart rate of 64. Troponin has been negative 2. Creatinine is stable at 1.00. Chest x-ray was without evidence of acute cardiopulmonary process. Ms. Christine is currently resting in bed in no acute distress. She reports she continues to have this chest pain, states it is a 7 on a scale of 1-10. She denies any shortness of breath at present. She also denies palpitations or dizziness. Monitor currently shows sinus rhythm heart rates in the 60s. Vital signs been stable, blood pressure this morning 104/51. We will give her Tylenol , tramadol, gabapentin, and naproxen to see if this helps with her chest wall pain. We will also get an echocardiogram today and will schedule her for a heart cath with Dr. King tomorrow. CC: Tiffany Dawn MD - Home Medications and Allergies Home Medications: Home Medications Medication Instructions Recorded Confirmed Type Escitalopram [Lexapro] 20 mg PO DAILY #30 tablet 11/14/15 08/21/16 Rx Levothyroxine Tab [Synthroid Tab] 200 mcg PO DAILY@0700 #30 tablet 11/14/1509/01 Rx Lisinopril [Prinivil] 10 mg PO DAILY #30 tablet 11/14/15 08/21/16 Rx Topiramate [Topamax] 100 mg PO BID #60 tablet 11/14/15 08/21/16 Rx Gabapentin 300 mg PO BID 04/10/16 08/21/16 History Insulin NPH Hum/Reg Insulin Hm 20 units SUBCUT AC BREAKFAST 04/10/16 08/21/16 History [NovoLIN 70/30] Fluticasone 50 Mcg Nasal [place] 2 spray BOTH NARES DAILY 07/16/16 08/21/16 History [Flonase Nasal [place]] Acetaminophen Tab [Tylenol Tab] 325 mg PO BID tablet 08/22/16 Rx Aspirin EC Tab 325 mg PO DAILY tablet 08/22/16 Rx Dextrose 50% [D50] 25 gm IV PRN PRN vial 08/22/16 Rx Dextrose 50% [D50] 25 gm IV PRN PRN vial 08/22/16 Rx Difluprednate 0.05% Oph Emul 1 drop LEFT EYE DAILY 08/22/16 08/22/16 History [Durezol] Glucagon 1 mg IM PRN PRN vial 08/22/16 Rx Glucagon 1 mg IM PRN PRN vial 08/22/16 Rx Insulin Lispro [HumaLOG] See Protocol SUBCUT ACHS unit 08/22/16 Rx Morphine Inj 2 mg IV Q5M PRN syringe 08/22/16 Rx Naproxen [Naprosyn Tab] 250 mg PO BID tablet 08/22/16 Rx Nepafenac [Ilevro 0.3% Oph Susp] 1 drop LEFT EYE DAILY 08/22/16 08/22/16 History Ofloxacin 0.3% Oph Soln [Ocuflox 1 drop LEFT EYE DAILY 08/22/16 08/22/16 History 0.3% Oph Soln] traMADol TAB [Ultram] 50 mg PO BID tablet 08/22/16 Rx Allergies/Adverse Reactions: Allergies Allergy/AdvReac Type Severity Reaction Status Date / Time atorvastatin [From Lipitor] Allergy Unknown/Unable Verified 08/21/16 23:43 to obtain azithromycin [From Zithromax] Allergy Unknown/Unable Verified 08/21/16 23:43 to obtain clindamycin Allergy Vomiting Verified 08/21/16 23:43 metformin Allergy ITCHING Verified 08/21/16 23:43 niacin Allergy ITCHING Verified 08/21/16 23:43 Penicillins AdvReac Nausea Verified 08/21/16 23:43 contrast dye Allergy Unknown/Unable Uncoded 08/21/16 23:43 to obtain - Constitutional Constitutional: Present: as per HPI - EENT Eyes: Present: loss of vision, requires corrective lense Ears: Present: ear pain. Absent: decreased hearing, tinnitus Nose, mouth and throat: Present: headache(s), hoarseness, sore throat. Absent: dysphagia, epistaxis, neck pain - Cardiovascular Cardiovascular: Present: chest pain at rest, diaphoresis, dyspnea, dyspnea on exertion, radiating jaw, neck or arm pain, lightheadedness, palpitations. Absent: edema, orthopnea - Respiratory Respiratory: Present: cough, dyspnea, dyspnea on exertion. Absent: hemoptysis, wheezing - Gastrointestinal Gastrointestinal: Present: nausea. Absent: abdominal pain, constipation, diarrhea, hematemesis, hematochezia, melena, vomiting - Genitourinary Genitourinary: Absent: dysuria, hematuria - Musculoskeletal Musculoskeletal: Present: limited range of motion, muscle weakness - Neurological Neurological: Present: abnormal gait, abnormal speech, dizziness, frequent falls , headache(s). Absent: syncope - Psychiatric Psychiatric: Present: depression. Absent: anxiety - Endocrine Endocrine: Present: fatigue - Hematologic/Lymphatic Hematologic/Lymphatic: Present: easy bruising. Absent: easy bleeding Medical,Surgical,& Family Hx - Medical History Cardio: History of: Cardiac Dysrhythmia (A-fib), Hypertension, Cardiovascular Problems (ASD status post percutaneous repair) Psychological: History of: Depression No history of: Behavior Problems Neurology: History of: Cerebrovascular Accident (2010), Migraine, Seizures ( "silent seizures" LAST SEIZURE LAST WEEK.), TIA HEENT: History of: Eye Problem Endocrine: History of: Diabetes Mellitus (IDDM), Dyslipidemia, Thyroid Disorder (TAKE SYNTHROID) Respiratory: History of: Obstructive Sleep Apnea (cpap) Other: History of: Miscellaneous Medical Problems (IMMUNE DEFICIENCY DISORDER) Comment Only: Anesthesia Reactions (BUT DO NOT WAKE UP EASILY) - Surgical History Cardiac Surgeries: Sugical HX of: Cardiac Surgery (2004, PFO repair at [facility]) HEENT Surgeries: Surgical HX of: Eye Surgery (Bilateral cataracts) Reproductive Surgeries: Surgical HX of;: Breast Surgery (lt breast debridement) , Dilation and Curettage, Hysterectomy - Family History Family History: Reports;: Family Cancer (Mother), Family Diabetes (Mother father sister), Family Heart Disease (Father), Family Hypertension (Mother father brother sister) - Social History Smoking Status: Never smoker Have you smoked in the last 12 months: No Frequency of Alcohol Use: None Type of Drug Use: None Marital Status: Lives With:: Spouse Functional capacity: uses cane/walker Physical Examination Vital Signs Temp Pulse Resp BP Pulse Ox 97.3 F L 74 16 121/71 97 08/21/16 23:38 08/21/16 23:38 08/21/16 23:38 08/21/16 23:38 08/21/16 23:38 General: Present: Appears Well, No Apparent Distress HEENT: Present: PERRL, Mucus Membranes Moist Neck: Present: Supple Neck, Midline Trachea, No Bruit Cardiac: Present: Reg Rate and Rhythm, No Murmur Lungs: Present: Normal Breath Sounds, No Wheeze, Rales, Rhonchi Neuro: Absent: Resting Tremor, Essential Tremor Abdomen: Present: Soft, Active Bowel Sounds, Non-Tender Skin: Present: Other (Healing blister to right great toe). Absent: Rash Musculoskeletal: Present: Decreased Range of Motion Gait: Present: Poor Gait Extremities: Present: No Edema, Normal Upper Extr. Pulses, Normal Lower Extr. Pulses Result/EKG - Labs CBC & BMP: 08/22/16 00:00 08/22/16 00:00 Lab Results: I have reviewed the past 24 hour labs Labs: Laboratory Results - last 24 hr 08/22/16 08/22/16 08/22/16 00:00 00:00 00:00 WBC RBC Hgb Hct MCV MCH MCHC RDW Plt Count MPV Neut % (Auto) Lymph % (Auto) [place] % (Auto) Eos % (Auto) Baso % (Auto) Neut # (Auto) Lymph # (Auto) [place] # (Auto) Eos # (Auto) Baso # (Auto) Immature Gran % Nucleated RBC % Immature Gran # Nucleated RBCs # INR 1.0 PT Patient/Control Mix 10.7 D-Dimer, Quantitative <= 0.5 Sodium 132 L Potassium 4.2 Chloride 97 L Carbon Dioxide 23 Anion Gap 16.2 H BUN 23 H Creatinine 1.00 GFR Calculation 74 BUN/Creatinine Ratio 23.00 H Glucose 454 H POC Glucose Calculated Osmolality 287.5 Calcium 9.2 Magnesium Total Bilirubin 0.40 AST 58 H ALT 90 H Alkaline Phosphatase 156 H Troponin I B-Natriuretic Peptide 7 Total Protein 7.3 Albumin 3.6 Globulin 3.7 H Albumin/Globulin Ratio 0.9 L Triglycerides Cholesterol LDL Cholesterol VLDL Cholesterol HDL Cholesterol Heart Disease Risk Ratio Lipase Urine Color Urine Appearance Urine pH Ur Specific [place] Urine Protein Urine Glucose (UA) Urine Ketones Urine Blood Urine Nitrate Urine Bilirubin Urine Urobilinogen Urine Leukocytes Urine RBC Urine WBC Ur Squamous Epith Cells Hyaline Casts Urine Mucus Ur Culture Indicated? Urine Opiates Screen Ur Barbiturates Screen Ur Phencyclidine Scrn U Amphetamine/Methamph U Benzodiazepines Scrn U Cocaine Metab Screen U Cannabinoids Screen 08/22/16 08/22/16 08/22/16 00:00 00:00 00:00 WBC 7.3 RBC 4.70 Hgb 13.8 Hct 40.8 MCV 86.8 L MCH 29 MCHC 33.8 RDW 12.7 Plt Count 233 MPV 11.0 Neut % (Auto) 60.2 Lymph % (Auto) 32.1 [place] % (Auto) 4.8 Eos % (Auto) 1.4 Baso % (Auto) 0.8 Neut # (Auto) 4.4 Lymph # (Auto) 2.4 [place] # (Auto) 0.4 Eos # (Auto) 0.1 Baso # (Auto) 0.1 Immature Gran % 0.7 Nucleated RBC % 0.0 Immature Gran # 0.05 Nucleated RBCs # 0.00 INR PT Patient/Control Mix D-Dimer, Quantitative Sodium Potassium Chloride Carbon Dioxide Anion Gap BUN Creatinine GFR Calculation BUN/Creatinine Ratio Glucose POC Glucose Calculated Osmolality Calcium Magnesium 1.9 Total Bilirubin AST ALT Alkaline Phosphatase Troponin I < 0.015 B-Natriuretic Peptide Total Protein Albumin Globulin Albumin/Globulin Ratio Triglycerides Cholesterol LDL Cholesterol VLDL Cholesterol HDL Cholesterol Heart Disease Risk Ratio Lipase 208.0 Urine Color Urine Appearance Urine pH Ur Specific [place] Urine Protein Urine Glucose (UA) Urine Ketones Urine Blood Urine Nitrate Urine Bilirubin Urine Urobilinogen Urine Leukocytes Urine RBC Urine WBC Ur Squamous Epith Cells Hyaline Casts Urine Mucus Ur Culture Indicated? Urine Opiates Screen Ur Barbiturates Screen Ur Phencyclidine Scrn U Amphetamine/Methamph U Benzodiazepines Scrn U Cocaine Metab Screen U Cannabinoids Screen 08/22/16 08/22/16 08/22/16 00:30 00:30 05:41 WBC RBC Hgb Hct MCV MCH MCHC RDW Plt Count MPV Neut % (Auto) Lymph % (Auto) [place] % (Auto) Eos % (Auto) Baso % (Auto) Neut # (Auto) Lymph # (Auto) [place] # (Auto) Eos # (Auto) Baso # (Auto) Immature Gran % Nucleated RBC % Immature Gran # Nucleated RBCs # INR PT Patient/Control Mix D-Dimer, Quantitative Sodium Potassium Chloride Carbon Dioxide Anion Gap BUN Creatinine GFR Calculation BUN/Creatinine Ratio Glucose POC Glucose Calculated Osmolality Calcium Magnesium Total Bilirubin AST ALT Alkaline Phosphatase Troponin I < 0.015 B-Natriuretic Peptide Total Protein Albumin Globulin Albumin/Globulin Ratio Triglycerides Cholesterol LDL Cholesterol VLDL Cholesterol HDL Cholesterol Heart Disease Risk Ratio Lipase Urine Color Yellow Urine Appearance Clear Urine pH 5.0 Ur Specific [place] 1.028 Urine Protein Negative Urine Glucose (UA) >=500 Urine Ketones 5 Urine Blood Negative Urine Nitrate Negative Urine Bilirubin Negative Urine Urobilinogen < 2.0 H Urine Leukocytes Trace Urine RBC 1 Urine WBC 3 Ur Squamous Epith Cells Few Hyaline Casts 1 Urine Mucus Occasional Ur Culture Indicated? Not indicated Urine Opiates Screen Positive H Ur Barbiturates Screen Negative Ur Phencyclidine Scrn Negative U Amphetamine/Methamph Negative U Benzodiazepines Scrn Negative U Cocaine Metab Screen Negative U Cannabinoids Screen Negative 08/22/16 08/22/16 08/22/16 05:41 07:15 Unknown WBC RBC Hgb Hct MCV MCH MCHC RDW Plt Count MPV Neut % (Auto) Lymph % (Auto) [place] % (Auto) Eos % (Auto) Baso % (Auto) Neut # (Auto) Lymph # (Auto) [place] # (Auto) Eos # (Auto) Baso # (Auto) Immature Gran % Nucleated RBC % Immature Gran # Nucleated RBCs # INR PT Patient/Control Mix D-Dimer, Quantitative Sodium Potassium Chloride Carbon Dioxide Anion Gap BUN Creatinine GFR Calculation BUN/Creatinine Ratio Glucose POC Glucose 319 H Calculated Osmolality Calcium Magnesium Total Bilirubin AST ALT Alkaline Phosphatase Troponin I B-Natriuretic Peptide Total Protein Albumin Globulin Albumin/Globulin Ratio Triglycerides 358 H 609 H Cholesterol 189 245 H LDL Cholesterol 89.0 97.0 VLDL Cholesterol 71.6 121.8 HDL Cholesterol 35 L 39 L Heart Disease Risk Ratio 5.40 6.28 Lipase Urine Color Urine Appearance Urine pH Ur Specific [place] Urine Protein Urine Glucose (UA) Urine Ketones Urine Blood Urine Nitrate Urine Bilirubin Urine Urobilinogen Urine Leukocytes Urine RBC Urine WBC Ur Squamous Epith Cells Hyaline Casts Urine Mucus Ur Culture Indicated? Urine Opiates Screen Ur Barbiturates Screen Ur Phencyclidine Scrn U Amphetamine/Methamph U Benzodiazepines Scrn U Cocaine Metab Screen U Cannabinoids Screen - Diagnostic Findings Procedure: Chest x-ray: report reviewed by me - EKG EKG results: interpreted by me EKG shows: sinus rhythm Toby Henry Dale, MD, personally performed the services described in this documentation, ascribed by Vannesa Ponce RN in my presence, and it is both accurate and complete .
--- NOTE | 2016-08-23 00:07 | History and Physical Update ---
Sedation H&P Update - History and Physical H&P was reviewed, the patient examined and there: are no changes in the patients condition since last H&P was completed. - Dictation Physical: refer to H&P completed by admitting physician - Physical Exam Mental Status: alert and oriented Heart: regular rate and rhythm Lung: clear to auscultation Abdomen: within normal limits Vitals: within normal limits - Sedation Plan for Sedation: minimal Patient Consent: Procedure disscussed with patient and patinet has consented., Risks and benefits were discussed with patient,including infection,, bleeding, injury to surrounding structures, seizure, temporary nerve, Patient understands and accepts potential risks/benefits and agrees to, proceed. ASA Class: II Airway Assessment: Class III: Soft palate, base of uvula visible
[2016-08-23] MEDS: NITROGLYCERIN 2% OINT 1 INCH/GM PACK TOP SCH ×3 (01:02→12:05)
[2016-08-23] MEDS: ENOXAPARIN 80 MG/0.8 ML SYRINGE SUBCUT SCH ×2 (02:40→12:39)
[2016-08-23] MEDS: SODIUM CHLORIDE 0.45% 1,000 ML IV SCH ×2 (03:43→17:33)
[2016-08-23] MEDS ORDERED: diphenhydrAMINE CAP 25 MG CAPSULE PO ONE (06:00)
[2016-08-23] MEDS ORDERED: DIAZEPAM 5 MG TABLET PO ONE (06:00)
[2016-08-23] MEDS: LEVOTHYROXINE 200 MCG TABLET PO SCH (06:40)
[2016-08-23] MEDS ORDERED: HEPARIN/NACL 0.9% 2 UNITS/ML 1,000 ML IV ONE (07:13)
--- NOTE | 2016-08-23 08:26 | EKG Report ---
Stationary ECG Study [facility] Test Date: 08/23/2016 8:26:14 AM Pat Name: ARMANDO MCCULLOUGH Department: Room: 296 Gender: F Sawmill Worker: : 1960 Requested by: Gordon Luis Order Number: [id number] Reading MD: GORDON LUIS Intervals [place] Rate: 64 P: 62 MT: 168 QRS: 132 QRSD: 116 T: 88 QT: 404 QTc: 413 Interpretive Statements SINUS RHYTHM WITH MARKED SINUS ARRHYTHMIA POSSIBLE RIGHT VENTRICULAR HYPERTROPHY POSSIBLE ANTERIOR MYOCARDIAL INFARCTION, OF INDETERMINATE AGE Electronically Signed On 08-23-16 13:49:47 CDT by GORODN LUIS [id number]
[2016-08-23] MEDS ORDERED: methylPREDNISolone SOD SUC 125 MG/2 ML VIAL IV ONE (08:40)
[2016-08-23] MEDS ORDERED: FAMOTIDINE 20 MG TABLET PO ONE (08:53)
[2016-08-23] MEDS: INSULIN LISPRO 100 UNIT/ML SUBCUT SCH ×3 (08:57→17:33)
[2016-08-23] MEDS: GABAPENTIN 300 MG CAPSULE PO SCH (08:59)
[2016-08-23] MEDS: FLUTICASONE 50 MCG NASAL SPRAY 16 GM BOTTLE BOTH NARES SCH (08:59)
[2016-08-23] MEDS: ESCITALOPRAM 10 MG TABLET PO SCH (08:59)
[2016-08-23] MEDS: ASPIRIN EC 325 MG TABLET PO SCH (08:59)
[2016-08-23] MEDS: NAPROXEN 250 MG TABLET PO SCH (08:59)
[2016-08-23] MEDS: traMADol 50 MG TABLET PO SCH (09:00)
[2016-08-23] MEDS: TOPIRAMATE 100 MG TABLET PO SCH (09:00)
[2016-08-23] MEDS: ACETAMINOPHEN 325 MG TABLET PO SCH (09:00)
[2016-08-23] MEDS: LISINOPRIL 10 MG TABLET PO SCH (09:03)
[2016-08-23] MEDS ORDERED: LIDOCAINE 1% 20 ML VIAL ONE (09:43)
[2016-08-23] MEDS ORDERED: fentaNYL 100 MCG/2 ML VIAL ONE (09:46)
[2016-08-23] MEDS ORDERED: MIDAZOLAM 2 MG/2 ML VIAL ONE (09:46)
--- NOTE | 2016-08-23 09:59 | History and Physical Update ---
Sedation H&P Update - History and Physical H&P was reviewed, the patient examined and there: are no changes in the patients condition since last H&P was completed. - Sedation Plan for Sedation: moderate Patient Consent: Procedure disscussed with patient and patinet has consented., Risks and benefits were discussed with patient,including infection,, bleeding, injury to surrounding structures, seizure, temporary nerve, Patient understands and accepts potential risks/benefits and agrees to, proceed. ASA Class: III Airway Assessment: Class III: Soft palate, base of uvula visible
--- NOTE | 2016-08-23 10:56 | Cardiac Catheterization ---
Date of Procedure:: 08/23/16 Pre-op Diagnosis: Atypical chest pain with risk factors for evaluation Post-op diagnosis: same Procedure: Procedures performed: Left heart catheterization Coronary arteriography Left ventriculography [Right] femoral sheath angiography Mynx closure femoral arteriotomy site After obtaining informed consent the patient was brought to the catheterization lab where the [right] groin was prepped and draped in the usual sterile manner. After intravenous sedation and local anesthesia a needle stick was made to the right femoral artery and a [6 [place] sheath] was positioned without difficulty. A left heart catheterization was undertaken using first a Kiana left diagnostic catheter. The catheter was advanced under fluoroscopy over a guidewire and positioned with its tip in the ostium of the left main coronary artery. Multiple angiograms were obtained of the left coronary artery in multiple views. After adequate angiogram to left coronary obtain this catheter was withdrawn and a 4 [place] JR4 catheter was used because of ostial angulation proximally and was advanced over guidewire and positioned eventually at the ostium of the right coronary where angiography of the right coronary artery was undertaken in multiple views. After adequate angiograms of the right coronary artery were obtained this catheter was withdrawn. A pigtail ventriculographic catheter was advanced over a guidewire under fluoroscopic control to the ascending aorta where it was advanced across the aortic valve and intraventricular hemodynamics were measured. A ventriculogram was obtained in the [place] projection and afterward a pullback was obtained from the ventricle to the aorta under hemodynamic monitoring and removed. At this point the patient underwent right femoral sheath angiography which demonstrated anatomy appropriate for Mynx closure. This was performed without difficulty and good hemostasis was obtained. The patient then was transferred back to the [facility] having suffered no significant immediate complications. Hemodynamics: Please see the accompanying data sheet Coronary arteriography: Left coronary artery: The left main coronary artery is well-developed and free of significant obstructing lesions. The circumflex coronary is a large nondominant vessel that possesses no significant lesions through its course. The branches of the circumflex likewise are free of significant obstructing lesions. The left anterior descending coronary artery is a large vessel that extends around the apex of the ventricle. The possesses no significant lesions throughout its course. There is a proximal diagonal branch which is a large and free of significant obstructing lesions. The LAD and its remaining branches are free of significant obstructing lesions. Right coronary artery: The right coronary artery is large vessel that is dominant and is free of significant obstructing lesions. The PDA and posterolateral branches likewise are free of significant obstructing lesions. Left ventriculography: After injection of contrast left ventricle is noted normal size with normal contractility. Mitral and aortic structures are noted to be free of significant abnormality by ventriculography. Right femoral sheath angiography: After injection of contrast in the right femoral arterial sheath it is noted be of normal caliber and enters above the bifurcation. The distal iliac, common femoral and bifurcation appear to be free of significant obstructing lesions based on this limited angiographic study. Conclusions: Angiographically no evidence of significant fixed coronary obstruction. Normal left ventricular size and function. Normal end-diastolic pressures at rest Mynx closure right femoral arteriotomy site Discussion recommendations the patient presents with chest discomfort. She has now undergone evaluation demonstrating no evidence of significant fixed coronary obstruction. She'll continue risk factor modification and our plan will be to evaluate for other etiologies of the patient's discomfort. Findings of been reviewed with the patient's family. Anesthesia: moderate conscious sedation Surgeon / Physician: Jefferson King Estimated blood loss: minimal Specimens: none sent Condition: stable - Medications / Follow-up
[2016-08-23] MEDS ORDERED: DIFLUPREDNATE 0.05% OPH EMUL 5 ML BOTTLE LEFT EYE SCH (11:00)
[2016-08-23] MEDS ORDERED: OFLOXACIN 0.3% OPH SOLN 10 ML BOTTLE LEFT EYE SCH (11:00)
[2016-08-23] MEDS ORDERED: NEPAFENAC 0.1% OPH SOLN 3 ML BOTTLE LEFT EYE SCH (11:00)
[2016-08-23] MEDS ORDERED: MICONAZOLE 100 MG VAG SUPP 7/BOX VAG SCH (11:10)
[2016-08-23] MEDS ORDERED: MICONAZOLE 2% VAG CREAM 45 GM TUBE VAG PRN (11:10)
[2016-08-23] MEDS ORDERED: DEXTROSE 50% 25 GM/50 ML VIAL IV PRN (11:34)
[2016-08-23] MEDS ORDERED: GLUCAGON 1 MG VIAL IM PRN (11:34)
--- NOTE | 2016-08-23 14:34 | Discharge Summary ---
Hospital Course - Hospital Course Hospital Course: Patient is a 56-year-old female with a history of uncontrolled diabetes, obstructive sleep apnea, hypertension who presented to the hospital with a chief complaint of chest pain. Based on her symptomatology it was felt that this was more likely atypical chest pain. Serial cardiac markers were negative. She was treated with nitroglycerin topically and aspirin. She was also resumed on her home insulin and instructed to use her home CPAP if it were available. She went for cardiac catheterization which was unrevealing for any significant obstructive coronary disease. Cardiology recommended medical management. For hypothyroidism, seizure disorder, and hypertension she was continued on her home medications. She was encouraged to being compliant with her medications as well as as she has a history of noncompliance especially with her diabetes medication. She complained of itching vaginally and clinically on exam her vaginal vault and labia showed beefy red tissue without any obvious cottage cheese discharge. She was started on Monistat for this. Once she was cleared by all consultants patient was discharged to home for ongoing care. Diagnosis - Discharge Diagnosis (1) Atypical chest pain Status: Resolved (2) Uncontrolled diabetes mellitus Status: Chronic (3) Hyperlipidemia Status: Chronic (4) Hypertension Status: Chronic (5) Obstructive sleep apnea Status: Chronic (6) Hypothyroidism Status: Chronic (7) Seizure disorder Status: Chronic (8) Obstructive sleep apnea Status: Chronic (9) Cataract, left eye Status: Resolved (10) Cataract, right eye Status: Resolved Specialty Discharge - Follow Up or Referrals Follow up with: md, pcp [Other] - 2 Weeks Discharge Plan - Discharge Data Disposition: Disch To Home/Self Care Condition at Discharge: Stable Discharge Diet: diabetic diet, heart healthy Activity: resume usual activities as tolerated Contact your physician if you experience:: fever over 101, Difficulty voiding, Redness or swelling, Nausea/Vomiting, Shortness of breath, Bleeding, pain uncontrolled by pain medications - Discharge Medications New Acetaminophen Tab [Tylenol Tab] 325 mg PO BID tablet Aspirin EC Tab 325 mg PO DAILY tablet traMADol TAB [Ultram] 50 mg PO BID tablet Insulin NPH/Regular 70/30 [HumuLIN 70/30] 20 unit SUBCUT AC BREAKFAST unit Miconazole 2% Vag Cream [Monistat 7 Vag Cream] 1 applicator VAG DAILY PRN # 30 gram PRN Reason: Itching Miconazole Vag Supp [Monistat 7 Vag Supp] 100 mg VAG BEDTIME #7 applic Nepafenac 0.1% Oph Soln [[place] 0.1% Oph Susp] 1 drop LEFT EYE DAILY bottle Insulin Lispro [HumaLOG] See Protocol SUBCUT ACHS unit Difluprednate 0.05% Oph Emul [Durezol] 1 drop LEFT EYE DAILY bottle Ofloxacin 0.3% Oph Soln [Ocuflox 0.3% Oph Soln] 1 drop LEFT EYE DAILY bottle Continue Levothyroxine Tab [Synthroid Tab] 200 mcg PO DAILY@0700 #30 tablet Lisinopril [Prinivil] 10 mg PO DAILY #30 tablet Escitalopram [Lexapro] 20 mg PO DAILY #30 tablet Topiramate [Topamax] 100 mg PO BID #60 tablet Fluticasone 50 Mcg Nasal [place] [Flonase Nasal [place]] 2 spray BOTH NARES DAILY Difluprednate 0.05% Oph Emul [Durezol] 1 drop LEFT EYE DAILY Gabapentin 300 mg PO BID Nepafenac [Ilevro 0.3% Oph Susp] 1 drop LEFT EYE DAILY Ofloxacin 0.3% Oph Soln [Ocuflox 0.3% Oph Soln] 1 drop LEFT EYE DAILY Discontinued Insulin NPH Hum/Reg Insulin Hm [NovoLIN 70/30] 20 units SUBCUT AC BREAKFAST glyBURIDE [Glyburide] 10 mg PO BID - Follow Up or Referral - Forms/Instructions Exam - Constitutional Vitals: Period Temp Pulse Resp BP Sys/Dia Pulse Ox Last 24 Hr 94.3 F-98.4 F 67-80 18-20 94-120/58-73 90-96 Exam: See progress note from 08/22 as physical exam is unchanged Discharge Results Procedures and tests throughout hospitalization: Pending Orders 08/23/16 11:00 CL heart Routine Labs on day of discharge: Labs from last 24 hours 08/23/16 08/23/16 08/22/16 12:03 07:52 21:11 POC Glucose 367 H 351 H 345 H 08/22/16 17:16 POC Glucose 353 H DS: Provider Date of admission: 08/22/16 01:28 Primary care physician: . No PCP Attending physician on admission: Franck Esparza MD Consults: 08/22/16 01:31 Consult to Physician [CONS] Routine Comment: Consulting Provider: Cardiology - [facility] Consult to Specialist Group: Cardiology When should Consulting Provider be notified: In am Person Notified: APURVA Date Notified: 08/22/16 Time Notified: 07:55 Discharging clinician: Tiffany Dawn MD
[2016-08-23 17:30] VITALS: BP 115/71
[2016-08-24] MEDS ORDERED: INSULIN NPH/REGULAR 70/30 100 UNIT/ML SUBCUT SCH (07:30)
== END 2016-08-23 17:32 | disposition home or self-care (01) ==
LOC: N.ED 23:29 → N.EDINP 23:29 → SUATTDRO 08-22 01:28 → N.TELEN 08-22 01:50
PROVIDERS: ADMIT Internal Medicine; ATTEND Pediatrics
PROC: CLCCHCL (ICD-10-PCS; 2016-08-23 11:15)

== ENCOUNTER 2017-11-21 03:34 | Observation (INO) ==
[2017-11-21] MEDS ORDERED: ONDANSETRON 4 MG/2 ML VIAL IV STA (03:57)
[2017-11-21] MEDS ORDERED: ALUM/MAG/SIMETH/LIDO VISC 1:1 30 ML BOTTLE PO STA (03:57)
[2017-11-21] MEDS ORDERED: PANTOPRAZOLE 40 MG VIAL IV STA (03:57)
[2017-11-21] MEDS ORDERED: SODIUM CHLORIDE 0.9% 500 ML IV STA (03:57)
[2017-11-21] MEDS ORDERED: MORPHINE 4 MG/1 ML VIAL IV STA (03:57)
[2017-11-21 04:42] LABS: Basophils # 0.1 10*3/uL (0.0-0.2); Basophils % 0.8 % (0.0-0.8); Eosinophils # 0.1 10*3/uL (0.0-0.87); Eosinophils % 1.7 % (0.00-10.9); Hematocrit 38.9 VOL% (35.7-47.0); Hemoglobin 13.6 GM/DL (12.0-16.0); Immature Granulocytes % 0.6 %; Immature Granulocytes Absolute 0.04 #; Lymphocytes # 2.4 10*3/uL (1.4-4.0); Lymphocytes % 33.8 % (21.3-54.2); Mean Corpuscular Hemoglobin 30 PG (27-34); Mean Corpuscular Volume 85.1 FL (87-102); Mean Platelet Volume 10.8 FL (9.6-12.0); Monocytes # 0.4 10*3/uL (0.11-0.8); Monocytes % 5.7 % (1.7-12.7); Neutrophils # 4.1 10*3/uL (1.4-7.4); Neutrophils % 57.4 % (38.7-73.9); Platelet Count 219 T/CUMM (130-400); Red Blood Count 4.57 MC/CUMM (3.8-5.5); White Blood Count 7.2 T/CUMM (4-12)
[2017-11-21 04:57] LABS: Apearance,Urine CLEAR (Clear); Bacteria,Urine Occasional /HPF (Few); Bilirubin,Urine Negative (Negative); Blood, Urine Negative (Negative); Glucose,Urine (UA) >=500 mg/dL (Negative); Ketones,Urine 5 mg/dL (Negative); Mucus,Urine Occasional /LPF (Occasional); Nitrite,Urine Negative (Negative); Protein,Urine Negative; RBC,Urine 3 /HPF (0-4); Squamous Epithelial Cell,Urine Occasional /HPF (0-10); Urine Color Straw (Yellow); Urine Specific Gravity 1.025 (1.001-1.035); Urine Urobilinogen < 2.0 EU/DL (0.2-1.0); WBC,Urine 29 /HPF (0-6)
[2017-11-21] MEDS ORDERED: cefTRIAXone 1,000 MG in SODIUM CHLORIDE 0.9% 100 ML IV STA (05:01)
[2017-11-21 05:05] LABS: Alanine Aminotransferase 78 U/L (13-56); Albumin 3.2 G/DL (3.4-5.0); Alkaline Phosphatase 134 U/L (45-117); Amylase 27 U/L (25-115); Aspartate Amino Transferase 52 U/L (0-37); Bilirubin,Total < 0.39 MG/DL (0.2-1.0); Blood Urea Nitrogen 19 MG/DL (7-18); Calcium 8.8 MG/DL (8.5-10.1); Glucose 422 MG/DL (74-106); Osmolality,Calculated 279.8 MOS/KG (273-304); Potassium 3.9 MMOL/L (3.5-5.1); Sodium 130 MMOL/L (136-145); Total Protein 6.9 G/DL (6.4-8.3)
[2017-11-21 05:08] LABS: Lactic Acid 0.8 MMOL/L (0.4-2.0)
[2017-11-21] MEDS ORDERED: INSULIN REGULAR 100 UNIT/ML IV STA (05:20)
[2017-11-21] MEDS ORDERED: MAGNESIUM SULF RIDER 2 GM in PREMIX 1 EACH IV STA (05:21)
[2017-11-21] MEDS ORDERED: ENOXAPARIN 100 MG/ML SYRINGE SUBCUT STA (05:22)
[2017-11-21] MEDS ORDERED: ACETAMINOPHEN 325 MG TABLET PO PRN (05:37)
[2017-11-21] MEDS ORDERED: ONDANSETRON 4 MG/2 ML VIAL IV PRN (05:37)
[2017-11-21] MEDS ORDERED: MAGNESIUM SULF RIDER 2 GM in PREMIX 1 EACH IV PRN (05:37)
[2017-11-21] MEDS ORDERED: diphenhydrAMINE CAP 25 MG CAPSULE PO PRN (05:37)
[2017-11-21] MEDS ORDERED: MORPHINE 4 MG/1 ML VIAL IV PRN (05:37)
[2017-11-21] MEDS ORDERED: DEXTROSE 50% 25 GM/50 ML VIAL IV PRN (05:37)
[2017-11-21] MEDS ORDERED: MAGNESIUM SULF RIDER 4 GM in PREMIX 1 EACH IV PRN (05:37)
[2017-11-21] MEDS ORDERED: GLUCAGON 1 MG VIAL IM PRN (05:37)
[2017-11-21] MEDS ORDERED: LACTULOSE 20 GM/30 ML UDCUP PO PRN (05:37)
[2017-11-21] MEDS ORDERED: ENOXAPARIN 40 MG/0.4 ML SYRINGE SUBCUT SCH (06:00)
[2017-11-21] MEDS ORDERED: SODIUM CHLORIDE 0.9% 1,000 ML IV SCH (06:00)
[2017-11-21] MEDS ORDERED: LEVOTHYROXINE 75 MCG TABLET PO SCH (07:00)
[2017-11-21] MEDS: INSULIN REGULAR 100 UNIT/ML SUBCUT SCH ×2 (08:24→13:05)
[2017-11-21] MEDS ORDERED: PNEUMOCOCCAL VACCINE (13 VALENT) 0.5 ML SYRINGE IM ONE (09:00)
[2017-11-21] MEDS ORDERED: INSULIN GLARGINE 100 UNIT/ML SUBCUT SCH (09:00)
[2017-11-21] MEDS ORDERED: GABAPENTIN 300 MG CAPSULE PO SCH (09:00)
[2017-11-21] MEDS ORDERED: TOPIRAMATE 100 MG TABLET PO SCH (09:00)
[2017-11-21] MEDS ORDERED: ESCITALOPRAM 10 MG TABLET PO SCH (09:00)
[2017-11-21] MEDS ORDERED: LISINOPRIL 10 MG TABLET PO SCH (09:00)
[2017-11-21] MEDS ORDERED: PANTOPRAZOLE 40 MG TABLET PO SCH (09:00)
[2017-11-21 12:07] VITALS: BP 136/76
[2017-11-21] MEDS ORDERED: SODIUM CHLORIDE 0.9% 500 ML IV ONE (13:28)
[2017-11-21 13:43] LABS: Troponin I < 0.015 NG/ML (0.00-0.045)
[2017-11-21] MEDS ORDERED: ASPIRIN EC 325 MG TABLET PO SCH (21:00)
[2017-11-22] MEDS ORDERED: cefTRIAXone 1,000 MG in SYRINGE 1 EACH IV SCH (06:30)
== END 2017-11-21 15:11 | disposition home or self-care (01) ==
LOC: N.EDINP 03:34 → N.ED 03:34 → N.TELEN 06:11
PROVIDERS: ADMIT Internal Medicine; ATTEND Internal Medicine

== ENCOUNTER 2019-12-26 12:49 | Observation (INO) ==
[2019-12-26 13:07] LABS: Basophils # 0.1 10*3/uL (0.0-0.2); Basophils % 0.7 % (0.0-0.8); Eosinophils # 0.1 10*3/uL (0.0-0.87); Eosinophils % 1.8 % (0.00-10.9); Hematocrit 39.4 VOL% (35.7-47.0); Hemoglobin 13.4 GM/DL (12.0-16.0); Immature Granulocytes % 0.6 %; Immature Granulocytes Absolute 0.04 #; Lymphocytes # 1.8 10*3/uL (1.4-4.0); Lymphocytes % 27.2 % (21.3-54.2); Mean Corpuscular Volume 92.5 FL (87-102); Mean Platelet Volume 10.7 FL (9.6-12.0); Monocytes % 3.6 % (1.7-12.7); Neutrophils % 66.1 % (38.7-73.9); Platelet Count 214 T/CUMM (130-400); Red Blood Count 4.26 MC/CUMM (3.8-5.5); Red Cell Distribution Width 12.8 % (9.3-17.3); White Blood Count 6.7 T/CUMM (4-12)
[2019-12-26] MEDS ORDERED: ASPIRIN 325 MG TABLET PO STA (13:16)
[2019-12-26] MEDS ORDERED: NITROGLYCERIN SL 0.4 MG TABLET SL PRN (13:16)
[2019-12-26 13:28] LABS: INR 1.1; PT Patient Result 11.6 SECS (9.8-11.9)
[2019-12-26 13:32] LABS: Albumin 3.2 G/DL (3.4-5.0); Bilirubin,Total 0.4 MG/DL (0.2-1.0); Calcium 9.1 MG/DL (8.5-10.1); Osmolality,Calculated 281.7 MOS/KG (273-304); Total Protein 7.2 G/DL (6.4-8.3)
[2019-12-26] MEDS ORDERED: MORPHINE 4 MG/1 ML VIAL IV STA (13:37)
[2019-12-26] MEDS ORDERED: ONDANSETRON 4 MG/2 ML VIAL IV PRN (15:04)
[2019-12-26] MEDS ORDERED: GLUCAGON 1 MG VIAL IM PRN (15:04)
[2019-12-26] MEDS ORDERED: ACETAMINOPHEN 325 MG TABLET PO PRN (15:04)
[2019-12-26] MEDS ORDERED: DEXTROSE 50% 25 GM/50 ML VIAL IV PRN ×2 (15:04)
[2019-12-26] MEDS: INSULIN LISPRO 100 UNIT/ML SUBCUT SCH ×2 (17:36→21:15)
[2019-12-26] MEDS: ASPIRIN EC 81 MG TABLET PO SCH (21:15)
[2019-12-27] MEDS: LEVOTHYROXINE 200 MCG TABLET PO SCH (06:09)
[2019-12-27 06:22] LABS: Basophils # 0.1 10*3/uL (0.0-0.2); Eosinophils # 0.1 10*3/uL (0.0-0.87); Eosinophils % 1.8 % (0.00-10.9); Hematocrit 36.7 VOL% (35.7-47.0); Hemoglobin 12.1 GM/DL (12.0-16.0); Immature Granulocytes % 0.6 %; Immature Granulocytes Absolute 0.03 #; Lymphocytes # 1.9 10*3/uL (1.4-4.0); Mean Corpuscular Volume 93.1 FL (87-102); Neutrophils % 53.6 % (38.7-73.9); Platelet Count 176 T/CUMM (130-400); Red Blood Count 3.94 MC/CUMM (3.8-5.5); Red Cell Distribution Width 12.7 % (9.3-17.3)
[2019-12-27 06:35] LABS: Bilirubin,Urine Negative (Negative); Blood, Urine Small mg/dL (Negative); Glucose,Urine (UA) >=500 mg/dL (Negative); Ketones,Urine Negative (Negative); Mucus,Urine Occasional /LPF (Occasional); Nitrite,Urine Negative (Negative); Protein,Urine Negative; RBC,Urine 3 /HPF (0-4); Squamous Epithelial Cell,Urine Occasional /HPF (0-10); Urine Appearance CLEAR (Clear); Urine Color Yellow (Yellow); Urine Specific Gravity 1.022 (1.001-1.035); Urine Urobilinogen < 2.0 EU/DL (0.2-1.0); WBC,Urine 75 /HPF (0-6)
[2019-12-27 06:51] LABS: Alanine Aminotransferase 77 U/L (13-56); Albumin 2.8 G/DL (3.4-5.0); Alkaline Phosphatase 190 U/L (45-117); Aspartate Amino Transferase 51 U/L (0-37); Bilirubin,Direct < 0.100 MG/DL (0.0-0.20); Bilirubin,Indirect 0.3 MG/DL (0.0-1.0); Blood Urea Nitrogen 22 MG/DL (7-18); Calcium 8.6 MG/DL (8.5-10.1); Estimated Glom Filtration Rate 69 ML/MIN; Glucose 391 MG/DL (74-106); Osmolality,Calculated 282.5 MOS/KG (273-304); Total Protein 6.4 G/DL (6.4-8.3)
[2019-12-27] MEDS: cefTRIAXone 1,000 MG in SYRINGE 1 EACH IV SCH (07:02)
[2019-12-27] MEDS ORDERED: MAGNESIUM SULF RIDER 4 GM in PREMIX 1 EACH IV ONE (08:05)
[2019-12-27 08:15] LABS: Free T4 (Free Thyroxine) 0.29 NG/DL (0.76-1.46)
[2019-12-27] MEDS ORDERED: ROSUVASTATIN 20 MG TABLET PO SCH (09:00)
[2019-12-27] MEDS: INSULIN LISPRO 100 UNIT/ML SUBCUT SCH ×4 (10:17→21:07)
[2019-12-27] MEDS: ESCITALOPRAM 10 MG TABLET PO SCH (10:19)
[2019-12-27] MEDS: INSULIN NPH/REGULAR 70/30 100 UNIT/ML SUBCUT SCH (10:19)
[2019-12-27] MEDS: MAGNESIUM GLUCONATE 500 MG TABLET PO SCH (10:19)
[2019-12-27] MEDS: lisinopriL 10 MG TABLET PO SCH (10:20)
[2019-12-27] MEDS: PANTOPRAZOLE 40 MG TABLET PO SCH (10:20)
[2019-12-27] MEDS ORDERED: INSULIN NPH/REGULAR 70/30 100 UNIT/ML SUBCUT SCH (16:30)
[2019-12-27] MEDS: ASPIRIN EC 81 MG TABLET PO SCH (21:07)
[2019-12-28] MEDS: cefTRIAXone 1,000 MG in SYRINGE 1 EACH IV SCH (06:16)
[2019-12-28] MEDS: LEVOTHYROXINE 200 MCG TABLET PO SCH (06:16)
[2019-12-28 06:17] LABS: Basophils % 0.8 % (0.0-0.8); Eosinophils # 0.1 10*3/uL (0.0-0.87); Eosinophils % 1.8 % (0.00-10.9); Hematocrit 35.1 VOL% (35.7-47.0); Hemoglobin 11.7 GM/DL (12.0-16.0); Immature Granulocytes % 0.6 %; Immature Granulocytes Absolute 0.03 #; Lymphocytes # 1.6 10*3/uL (1.4-4.0); Lymphocytes % 31.2 % (21.3-54.2); Mean Corpuscular HGB Conc 33.3 GM/DL (32-36); Mean Corpuscular Volume 93.9 FL (87-102); Mean Platelet Volume 11.1 FL (9.6-12.0); Monocytes % 4.7 % (1.7-12.7); Neutrophils % 60.9 % (38.7-73.9); Platelet Count 184 T/CUMM (130-400); Red Blood Count 3.74 MC/CUMM (3.8-5.5); Red Cell Distribution Width 12.9 % (9.3-17.3); White Blood Count 5.1 T/CUMM (4-12)
[2019-12-28 06:37] LABS: Alanine Aminotransferase 122 U/L (13-56); Albumin 2.7 G/DL (3.4-5.0); Alkaline Phosphatase 217 U/L (45-117); Aspartate Amino Transferase 143 U/L (0-37); Bilirubin,Total < 0.39 MG/DL (0.2-1.0); Blood Urea Nitrogen 25 MG/DL (7-18); Calcium 8.2 MG/DL (8.5-10.1); Estimated Glom Filtration Rate 71 ML/MIN; Glucose 313 MG/DL (74-106); Osmolality,Calculated 281.4 MOS/KG (273-304); Total Protein 6.2 G/DL (6.4-8.3)
[2019-12-28] MEDS: ESCITALOPRAM 10 MG TABLET PO SCH (09:55)
[2019-12-28] MEDS: MAGNESIUM GLUCONATE 500 MG TABLET PO SCH (09:55)
[2019-12-28] MEDS: PANTOPRAZOLE 40 MG TABLET PO SCH (09:55)
[2019-12-28] MEDS: lisinopriL 10 MG TABLET PO SCH (09:55)
[2019-12-28] MEDS: INSULIN NPH/REGULAR 70/30 100 UNIT/ML SUBCUT SCH (09:56)
[2019-12-28] MEDS: INSULIN LISPRO 100 UNIT/ML SUBCUT SCH ×2 (09:57→12:30)
[2019-12-28 14:36] VITALS: BP 149/51
[2019-12-28] MEDS ORDERED: CIPROFLOXACIN 250 MG TABLET PO SCH (21:00)
== END 2019-12-28 14:32 | disposition home or self-care (01) ==
LOC: N.ED 12:49 → N.EDINP 12:49 → SUATTDRO 15:01 → N.TELEN 15:52
PROVIDERS: ADMIT Internal Medicine; ATTEND Internal Medicine

== ENCOUNTER 2020-04-03 15:08 | Inpatient (IN) ==
[2020-04-03] MEDS ORDERED: SODIUM CHLORIDE 0.9% 1,000 ML IV STA (15:36)
[2020-04-03 16:11] LABS: Bacteria,Urine Few /HPF (Few); Bilirubin,Urine Negative (Negative); Blood, Urine Small mg/dL (Negative); Glucose,Urine (UA) 50 mg/dL (Negative); Ketones,Urine Negative (Negative); Nitrite,Urine Positive (Negative); Protein,Urine 30 MG/DL; RBC,Urine 101 /HPF (0-4); Urine Appearance CLOUDY (Clear); Urine Color Amber (Yellow); Urine Specific Gravity 1.014 (1.001-1.035); Urine Urobilinogen < 2.0 EU/DL (0.2-1.0); WBC,Urine 2691 /HPF (0-6)
[2020-04-03 16:18] LABS: Basophils # 0.1 10*3/uL (0.0-0.2); Basophils % 0.5 % (0.0-0.8); Eosinophils # 0.1 10*3/uL (0.0-0.87); Eosinophils % 0.3 % (0.00-10.9); Hematocrit 44.6 VOL% (35.7-47.0); Hemoglobin 14.6 GM/DL (12.0-16.0); Immature Granulocytes % 0.8 %; Immature Granulocytes Absolute 0.14 #; Lymphocytes # 1.3 10*3/uL (1.4-4.0); Lymphocytes % 7.4 % (21.3-54.2); Mean Corpuscular HGB Conc 32.7 GM/DL (32-36); Mean Corpuscular Volume 92.3 FL (87-102); Mean Platelet Volume 10.1 FL (9.6-12.0); Monocytes % 2.8 % (1.7-12.7); Neutrophils % 88.2 % (38.7-73.9); Platelet Count 326 T/CUMM (130-400); Red Blood Count 4.83 MC/CUMM (3.8-5.5); Red Cell Distribution Width 12.4 % (9.3-17.3); White Blood Count 17.3 T/CUMM (4-12)
[2020-04-03 16:45] LABS: Alanine Aminotransferase 109 U/L (13-56); Albumin 3.4 G/DL (3.4-5.0); Alkaline Phosphatase 258 U/L (45-117); Aspartate Amino Transferase 135 U/L (0-37); Blood Urea Nitrogen 31 MG/DL (7-18); Calcium 9.6 MG/DL (8.5-10.1); Carbon Dioxide 23 MMOL/L (21-32); Estimated Glom Filtration Rate 48 ML/MIN; Glucose 414 MG/DL (74-106); Osmolality,Calculated 288.5 MOS/KG (273-304); Potassium 4.3 MMOL/L (3.5-5.1); Sodium 132 MMOL/L (136-145); Total Protein 8.1 G/DL (6.4-8.3)
[2020-04-03] MEDS ORDERED: SODIUM CHLORIDE 0.9% 1,500 ML IV STA (16:52)
[2020-04-03] MEDS ORDERED: CEFEPIME 1,000 MG in SODIUM CHLORIDE 0.9% 100 ML IV STA (16:53)
[2020-04-03] MEDS ORDERED: DEXTROSE 50% 25 GM/50 ML VIAL IV PRN ×2 (17:42)
[2020-04-03] MEDS ORDERED: GLUCAGON 1 MG VIAL IM PRN ×2 (17:42)
[2020-04-03 18:14] LABS: Ferritin 413.7 ng/ml (8-252)
[2020-04-03] MEDS: SODIUM CHLORIDE 0.9% 1,000 ML IV SCH ×2 (21:36→22:36)
[2020-04-03] MEDS: INSULIN LISPRO 100 UNIT/ML SUBCUT SCH (21:37)
[2020-04-03] MEDS: cefTRIAXone 1,000 MG in SYRINGE 1 EACH IV SCH (21:37)
[2020-04-04] LABS: Calcium 8.2 MG/DL (8.5-10.1); Osmolality,Calculated 289.2 MOS/KG (273-304)
[2020-04-04 01:51] LABS: Basophils % 0.2 % (0.0-0.8); Eosinophils % 0.2 % (0.00-10.9); Hematocrit 36.6 VOL% (35.7-47.0); Hemoglobin 12.1 GM/DL (12.0-16.0); Immature Granulocytes % 0.4 %; Immature Granulocytes Absolute 0.05 #; Lymphocytes % 8.2 % (21.3-54.2); Mean Corpuscular HGB Conc 33.1 GM/DL (32-36); Mean Corpuscular Volume 91.7 FL (87-102); Mean Platelet Volume 10.1 FL (9.6-12.0); Monocytes % 2.7 % (1.7-12.7); Neutrophils % 88.3 % (38.7-73.9); Platelet Count 232 T/CUMM (130-400); Red Blood Count 3.99 MC/CUMM (3.8-5.5); Red Cell Distribution Width 12.5 % (9.3-17.3)
[2020-04-04 02:17] LABS: Alanine Aminotransferase 103 U/L (13-56); Albumin 2.6 G/DL (3.4-5.0); Alkaline Phosphatase 203 U/L (45-117); Aspartate Amino Transferase 119 U/L (0-37); Bilirubin,Direct < 0.100 MG/DL (0.0-0.20); Bilirubin,Indirect 0.3 MG/DL (0.0-1.0); Bilirubin,Total < 0.39 MG/DL (0.2-1.0); Ferritin 318.5 ng/ml (8-252); Total Protein 6.3 G/DL (6.4-8.3)
[2020-04-04 02:25] LABS: Albumin 2.5 G/DL (3.4-5.0); Bilirubin,Total 0.4 MG/DL (0.2-1.0); Calcium 8.2 MG/DL (8.5-10.1); Osmolality,Calculated 289.8 MOS/KG (273-304); Potassium 3.8 MMOL/L (3.5-5.1); Risk Ratio 5.08; Thyroid Stimulating Hormone 6.98 uIU/ml (0.358-3.74); Total Protein 6.1 G/DL (6.4-8.3)
[2020-04-04 03:30] LABS: Hepatitis B Core IgM Quant 0.07 Index; Hepatitis B Surface Ag Quant < 0.10 Index; Hepatitis B Surface Ag Result Negative (Negative); Hepatitis C Virus Ab Quant < 0.02 Index; Hepatitis C Virus Ab Result Negative (Negative)
[2020-04-04] MEDS: ACETAMINOPHEN 325 MG TABLET PO PRN (04:53)
[2020-04-04] MEDS: SODIUM CHLORIDE 0.9% 1,000 ML IV SCH ×5 (06:17→23:11)
[2020-04-04] MEDS ORDERED: INFLUENZA VIRUS VACCINE 0.5 ML SYRINGE IM ONE (09:00)
[2020-04-04] MEDS: INSULIN LISPRO 100 UNIT/ML SUBCUT SCH ×4 (09:30→21:17)
[2020-04-04] MEDS: ESCITALOPRAM 10 MG TABLET PO SCH (12:04)
[2020-04-04] MEDS: metroNIDAZOLE INJ 500 MG in PREMIX 1 EACH IV SCH ×2 (12:05→18:22)
[2020-04-04] MEDS: TOPIRAMATE 100 MG TABLET PO SCH ×2 (12:05→21:17)
[2020-04-04] MEDS: cefTRIAXone 1,000 MG in SYRINGE 1 EACH IV SCH (21:17)
[2020-04-04] MEDS: ASPIRIN EC 81 MG TABLET PO SCH (21:17)
[2020-04-05 05:11] LABS: Basophils % 0.4 % (0.0-0.8); Eosinophils # 0.2 10*3/uL (0.0-0.87); Eosinophils % 1.7 % (0.00-10.9); Hematocrit 33.3 VOL% (35.7-47.0); Hemoglobin 10.9 GM/DL (12.0-16.0); Immature Granulocytes % 0.5 %; Immature Granulocytes Absolute 0.05 #; Lymphocytes # 1.9 10*3/uL (1.4-4.0); Lymphocytes % 19.7 % (21.3-54.2); Mean Corpuscular HGB Conc 32.7 GM/DL (32-36); Mean Corpuscular Volume 92.5 FL (87-102); Mean Platelet Volume 10.5 FL (9.6-12.0); Monocytes % 4.6 % (1.7-12.7); Neutrophils % 73.1 % (38.7-73.9); Platelet Count 194 T/CUMM (130-400); Red Cell Distribution Width 12.5 % (9.3-17.3); White Blood Count 9.4 T/CUMM (4-12)
[2020-04-05 05:40] LABS: Albumin 2.2 G/DL (3.4-5.0); Bilirubin,Total 0.6 MG/DL (0.2-1.0); Calcium 8.3 MG/DL (8.5-10.1); Osmolality,Calculated 281.8 MOS/KG (273-304); Potassium 3.6 MMOL/L (3.5-5.1); Total Protein 5.8 G/DL (6.4-8.3)
[2020-04-05] MEDS: metroNIDAZOLE INJ 500 MG in PREMIX 1 EACH IV SCH ×3 (06:01→18:00)
[2020-04-05] MEDS: LEVOTHYROXINE 100 MCG TABLET PO SCH (06:01)
[2020-04-05] MEDS: ESCITALOPRAM 10 MG TABLET PO SCH (09:35)
[2020-04-05] MEDS: TOPIRAMATE 100 MG TABLET PO SCH ×2 (09:35→21:16)
[2020-04-05] MEDS: INSULIN LISPRO 100 UNIT/ML SUBCUT SCH ×4 (09:36→21:16)
[2020-04-05] MEDS: SODIUM CHLORIDE 0.9% 1,000 ML IV SCH ×2 (10:31→16:50)
[2020-04-05] MEDS: SULFAMETHOX/TRIMETHOPRIM 800-160 MG TABLET PO SCH ×2 (11:13→21:16)
[2020-04-05] MEDS: INSULIN NPH/REGULAR 70/30 100 UNIT/ML SUBCUT SCH (16:40)
[2020-04-05] MEDS: cefTRIAXone 1,000 MG in SYRINGE 1 EACH IV SCH (21:15)
[2020-04-05] MEDS: ASPIRIN EC 81 MG TABLET PO SCH (21:16)
[2020-04-05] MEDS: ACETAMINOPHEN 325 MG TABLET PO PRN (21:18)
[2020-04-06] MEDS: SODIUM CHLORIDE 0.9% 1,000 ML IV SCH ×3 (01:30→21:04)
[2020-04-06] MEDS: ACETAMINOPHEN 325 MG TABLET PO PRN (01:30)
[2020-04-06] MEDS: metroNIDAZOLE INJ 500 MG in PREMIX 1 EACH IV SCH ×3 (02:05→21:04)
[2020-04-06 05:47] LABS: Basophils % 0.5 % (0.0-0.8); Eosinophils # 0.2 10*3/uL (0.0-0.87); Eosinophils % 2.3 % (0.00-10.9); Hematocrit 37.8 VOL% (35.7-47.0); Hemoglobin 11.7 GM/DL (12.0-16.0); Immature Granulocytes % 0.5 %; Immature Granulocytes Absolute 0.04 #; Lymphocytes % 27.1 % (21.3-54.2); Mean Corpuscular Volume 94.5 FL (87-102); Mean Platelet Volume 10.5 FL (9.6-12.0); Monocytes % 4.2 % (1.7-12.7); Neutrophils % 65.4 % (38.7-73.9); Platelet Count 225 T/CUMM (130-400); Red Cell Distribution Width 12.3 % (9.3-17.3); White Blood Count 7.5 T/CUMM (4-12)
[2020-04-06] MEDS: LEVOTHYROXINE 100 MCG TABLET PO SCH (05:47)
[2020-04-06 06:15] LABS: Albumin 2.2 G/DL (3.4-5.0); Bilirubin,Total 0.8 MG/DL (0.2-1.0); Calcium 8.7 MG/DL (8.5-10.1); Osmolality,Calculated 280.5 MOS/KG (273-304); Potassium 3.4 MMOL/L (3.5-5.1)
[2020-04-06] MEDS: LACTATED RINGERS 1,000 ML IV SCH (08:00)
[2020-04-06] MEDS: INSULIN NPH/REGULAR 70/30 100 UNIT/ML SUBCUT SCH ×2 (08:15→16:40)
[2020-04-06] MEDS: INSULIN LISPRO 100 UNIT/ML SUBCUT SCH ×4 (08:15→21:03)
[2020-04-06] MEDS ORDERED: propofoL 200 MG/20 ML VIAL IV ONE (08:22)
[2020-04-06] MEDS ORDERED: LIDOCAINE 2% 5 ML VIAL ONE (08:22)
[2020-04-06] MEDS ORDERED: ETOMIDATE 20 MG/10 ML VIAL IV ONE (08:22)
[2020-04-06] MEDS: SULFAMETHOX/TRIMETHOPRIM 800-160 MG TABLET PO SCH ×2 (12:45→21:03)
[2020-04-06] MEDS: ESCITALOPRAM 10 MG TABLET PO SCH (12:45)
[2020-04-06] MEDS: TOPIRAMATE 100 MG TABLET PO SCH ×2 (12:45→21:03)
[2020-04-06] MEDS ORDERED: MAGNESIUM SULF RIDER 4 GM in PREMIX 1 EACH IV ONE (13:00)
[2020-04-06] MEDS: SUCRALFATE 1 GM/10 ML UDCUP PO SCH (16:40)
[2020-04-06] MEDS: ASPIRIN EC 81 MG TABLET PO SCH (21:03)
[2020-04-06] MEDS: cefTRIAXone 1,000 MG in SYRINGE 1 EACH IV SCH (21:03)
[2020-04-07] MEDS: metroNIDAZOLE INJ 500 MG in PREMIX 1 EACH IV SCH ×3 (02:16→18:45)
[2020-04-07] MEDS: SODIUM CHLORIDE 0.9% 1,000 ML IV SCH ×2 (05:08→16:18)
[2020-04-07 05:41] LABS: Basophils # 0.1 10*3/uL (0.0-0.2); Basophils % 0.9 % (0.0-0.8); Eosinophils # 0.2 10*3/uL (0.0-0.87); Hemoglobin 11.5 GM/DL (12.0-16.0); Immature Granulocytes % 0.7 %; Immature Granulocytes Absolute 0.04 #; Lymphocytes # 1.7 10*3/uL (1.4-4.0); Mean Corpuscular HGB Conc 32.9 GM/DL (32-36); Mean Corpuscular Volume 90.4 FL (87-102); Mean Platelet Volume 10.4 FL (9.6-12.0); Monocytes % 5.2 % (1.7-12.7); Neutrophils % 59.2 % (38.7-73.9); Platelet Count 220 T/CUMM (130-400); Red Blood Count 3.87 MC/CUMM (3.8-5.5); Red Cell Distribution Width 12.6 % (9.3-17.3); White Blood Count 5.6 T/CUMM (4-12)
[2020-04-07] MEDS: LEVOTHYROXINE 100 MCG TABLET PO SCH (05:41)
[2020-04-07 06:04] LABS: Calcium 8.5 MG/DL (8.5-10.1); Osmolality,Calculated 283.5 MOS/KG (273-304); Potassium 3.5 MMOL/L (3.5-5.1)
[2020-04-07 08:10] LABS: Alanine Aminotransferase 53 U/L (13-56); Albumin 2.2 G/DL (3.4-5.0); Alkaline Phosphatase 222 U/L (45-117); Aspartate Amino Transferase 32 U/L (0-37); Bilirubin,Direct < 0.100 MG/DL (0.0-0.20); Bilirubin,Indirect 0.3 MG/DL (0.0-1.0); Bilirubin,Total < 0.39 MG/DL (0.2-1.0); Total Protein 6.1 G/DL (6.4-8.3)
[2020-04-07] MEDS: INSULIN LISPRO 100 UNIT/ML SUBCUT SCH ×4 (08:40→22:45)
[2020-04-07] MEDS: ESCITALOPRAM 10 MG TABLET PO SCH (08:40)
[2020-04-07] MEDS: TOPIRAMATE 100 MG TABLET PO SCH ×2 (08:40→20:52)
[2020-04-07] MEDS: SULFAMETHOX/TRIMETHOPRIM 800-160 MG TABLET PO SCH ×2 (08:40→20:53)
[2020-04-07] MEDS: INSULIN NPH/REGULAR 70/30 100 UNIT/ML SUBCUT SCH (08:40)
[2020-04-07] MEDS: LACTATED RINGERS 1,000 ML IV SCH (08:40)
[2020-04-07] MEDS: SUCRALFATE 1 GM/10 ML UDCUP PO SCH ×2 (08:40→16:19)
[2020-04-07] MEDS ORDERED: INSULIN NPH/REGULAR 70/30 100 UNIT/ML SUBCUT SCH (16:30)
[2020-04-07] MEDS: ASPIRIN EC 81 MG TABLET PO SCH (20:52)
[2020-04-07] MEDS: cefTRIAXone 1,000 MG in SYRINGE 1 EACH IV SCH (20:52)
[2020-04-08] MEDS: SODIUM CHLORIDE 0.9% 1,000 ML IV SCH (02:15)
[2020-04-08] MEDS: metroNIDAZOLE INJ 500 MG in PREMIX 1 EACH IV SCH ×3 (02:16→18:15)
[2020-04-08 04:50] LABS: Basophils % 0.8 % (0.0-0.8); Eosinophils # 0.2 10*3/uL (0.0-0.87); Eosinophils % 3.1 % (0.00-10.9); Hemoglobin 11.4 GM/DL (12.0-16.0); Immature Granulocytes % 1.9 %; Immature Granulocytes Absolute 0.09 #; Lymphocytes % 20.5 % (21.3-54.2); Mean Corpuscular HGB Conc 32.6 GM/DL (32-36); Mean Corpuscular Volume 91.1 FL (87-102); Mean Platelet Volume 9.9 FL (9.6-12.0); Monocytes % 7.7 % (1.7-12.7); Platelet Count 228 T/CUMM (130-400); Red Blood Count 3.84 MC/CUMM (3.8-5.5); Red Cell Distribution Width 12.4 % (9.3-17.3); White Blood Count 4.8 T/CUMM (4-12)
[2020-04-08 05:06] LABS: Calcium 8.3 MG/DL (8.5-10.1); Osmolality,Calculated 280.7 MOS/KG (273-304); Potassium 3.7 MMOL/L (3.5-5.1)
[2020-04-08 05:26] LABS: Hypochromasia Slight; Platelet Estimate Adequate
[2020-04-08] MEDS: LEVOTHYROXINE 100 MCG TABLET PO SCH (06:15)
[2020-04-08] MEDS: SULFAMETHOX/TRIMETHOPRIM 800-160 MG TABLET PO SCH ×2 (08:14→22:39)
[2020-04-08] MEDS: ESCITALOPRAM 10 MG TABLET PO SCH (08:14)
[2020-04-08] MEDS: SUCRALFATE 1 GM/10 ML UDCUP PO SCH ×2 (08:15→16:44)
[2020-04-08] MEDS: INSULIN LISPRO 100 UNIT/ML SUBCUT SCH ×4 (08:15→22:39)
[2020-04-08] MEDS: TOPIRAMATE 100 MG TABLET PO SCH ×2 (08:15→22:39)
[2020-04-08] MEDS: INSULIN NPH/REGULAR 70/30 100 UNIT/ML SUBCUT SCH (08:16)
[2020-04-08] MEDS ORDERED: MAGNESIUM SULF INJ 3 GM in SODIUM CHLORIDE 0.9% 100 ML IV ONE (14:00)
[2020-04-08] MEDS ORDERED: INSULIN NPH/REGULAR 70/30 100 UNIT/ML SUBCUT SCH (16:30)
[2020-04-08] MEDS: cefTRIAXone 1,000 MG in SYRINGE 1 EACH IV SCH (22:36)
[2020-04-08] MEDS: ASPIRIN EC 81 MG TABLET PO SCH (22:39)
[2020-04-09] MEDS: metroNIDAZOLE INJ 500 MG in PREMIX 1 EACH IV SCH ×2 (04:08→12:50)
[2020-04-09 05:21] LABS: Basophils % 0.5 % (0.0-0.8); Eosinophils # 0.2 10*3/uL (0.0-0.87); Eosinophils % 3.4 % (0.00-10.9); Hematocrit 39.3 VOL% (35.7-47.0); Hemoglobin 12.3 GM/DL (12.0-16.0); Immature Granulocytes % 2.6 %; Immature Granulocytes Absolute 0.15 #; Lymphocytes # 1.2 10*3/uL (1.4-4.0); Lymphocytes % 21.9 % (21.3-54.2); Mean Corpuscular HGB Conc 31.3 GM/DL (32-36); Mean Platelet Volume 9.7 FL (9.6-12.0); Neutrophils % 62.6 % (38.7-73.9); Platelet Count 269 T/CUMM (130-400); Red Blood Count 4.18 MC/CUMM (3.8-5.5); Red Cell Distribution Width 12.6 % (9.3-17.3); White Blood Count 5.7 T/CUMM (4-12)
[2020-04-09 05:37] LABS: Calcium 8.9 MG/DL (8.5-10.1); Potassium 3.6 MMOL/L (3.5-5.1)
[2020-04-09 06:15] LABS: Band Neutrophils 2 % (0-10); Eosinophils 3 % (0-10); Hypochromasia 1+; Lymphocytes 26 % (20-55); Segmented Neutrophils 65 % (50-85); Total Cells Counted 100
[2020-04-09 06:16] LABS: Microcytosis Slight; Platelet Estimate Normal
[2020-04-09] MEDS: LEVOTHYROXINE 100 MCG TABLET PO SCH (06:19)
[2020-04-09] MEDS: ESCITALOPRAM 10 MG TABLET PO SCH (08:48)
[2020-04-09] MEDS: TOPIRAMATE 100 MG TABLET PO SCH (08:48)
[2020-04-09] MEDS: SULFAMETHOX/TRIMETHOPRIM 800-160 MG TABLET PO SCH (08:48)
[2020-04-09] MEDS: INSULIN LISPRO 100 UNIT/ML SUBCUT SCH ×2 (08:49→12:50)
[2020-04-09] MEDS: INSULIN NPH/REGULAR 70/30 100 UNIT/ML SUBCUT SCH (08:49)
[2020-04-09] MEDS: SUCRALFATE 1 GM/10 ML UDCUP PO SCH (08:49)
[2020-04-09 13:30] VITALS: BP 88/61
== END 2020-04-09 16:58 | disposition home or self-care (01) | DRG 392 ==
LOC: EDUNIT# → EDBD → N.ED 15:08 → N.EDINP 17:41 → SUATTDRO 17:41 → N.3E 19:03
PROVIDERS: ADMIT Internal Medicine; ATTEND Phlebology

== ENCOUNTER 2020-09-04 16:00 | Inpatient (IN) ==
[2020-09-04] MEDS ORDERED: SODIUM CHLORIDE 0.9% 1,000 ML IV STA (17:08)
[2020-09-04] MEDS ORDERED: ONDANSETRON 4 MG/2 ML VIAL IV STA (17:08)
[2020-09-04 17:33] LABS: Basophils # 0.1 10*3/uL (0.0-0.2); Basophils % 0.7 % (0.0-0.8); Eosinophils # 0.1 10*3/uL (0.0-0.87); Eosinophils % 1.6 % (0.00-10.9); Hematocrit 45.6 VOL% (35.7-47.0); Immature Granulocytes % 0.4 %; Immature Granulocytes Absolute 0.03 #; Lymphocytes # 2.1 10*3/uL (1.4-4.0); Lymphocytes % 29.8 % (21.3-54.2); Mean Corpuscular HGB Conc 32.9 GM/DL (32-36); Mean Corpuscular Volume 89.2 FL (87-102); Mean Platelet Volume 10.5 FL (9.6-12.0); Monocytes % 3.8 % (1.7-12.7); Neutrophils % 63.7 % (38.7-73.9); Platelet Count 217 T/CUMM (130-400); Red Blood Count 5.11 MC/CUMM (3.8-5.5); Red Cell Distribution Width 12.4 % (9.3-17.3); White Blood Count 6.9 T/CUMM (4-12)
[2020-09-04 17:53] LABS: Albumin 3.3 G/DL (3.4-5.0); Bilirubin,Total 0.5 MG/DL (0.2-1.0); Osmolality,Calculated 286.7 MOS/KG (273-304); Potassium 4.7 MMOL/L (3.5-5.1); Total Protein 7.2 G/DL (6.4-8.2)
[2020-09-04 18:31] LABS: Bilirubin,Urine Negative (Negative); Blood, Urine Negative (Negative); Glucose,Urine (UA) >=500 mg/dL (Negative); Hyaline Casts,Urine 1 /LPF (0-3); Ketones,Urine Negative (Negative); Mucus,Urine Occasional /LPF (Occasional); Nitrite,Urine Positive (Negative); Protein,Urine Negative; Urine Appearance CLEAR (Clear); Urine Color Amber (Yellow); Urine Specific Gravity 1.018 (1.001-1.035)
[2020-09-04] MEDS ORDERED: DEXTROSE 50% 25 GM/50 ML VIAL IV PRN ×2 (20:28→20:30)
[2020-09-04] MEDS ORDERED: ONDANSETRON 4 MG/2 ML VIAL IV PRN (20:30)
[2020-09-04] MEDS ORDERED: ACETAMINOPHEN 325 MG TABLET PO PRN (20:30)
[2020-09-04] MEDS ORDERED: GLUCAGON 1 MG VIAL IM PRN (20:30)
[2020-09-04] MEDS ORDERED: MAGNESIUM SULF RIDER 2 GM/50 ML PREMIX IV PRN (20:34)
[2020-09-04] MEDS ORDERED: MAGNESIUM SULF RIDER 4 GM/100 ML PREMIX IV PRN (20:34)
[2020-09-04] MEDS: INSULIN LISPRO 100 UNIT/ML SUBCUT SCH (21:29)
[2020-09-05] MEDS: SODIUM CHLORIDE 0.9% 1,000 ML IV SCH ×3 (02:12→21:29)
[2020-09-05] MEDS: cefTRIAXone 1,000 MG in SODIUM CHLORIDE 0.9% 100 ML IV SCH (02:13)
[2020-09-05 04:41] LABS: Basophils # 0.1 10*3/uL (0.0-0.2); Basophils % 0.7 % (0.0-0.8); Eosinophils # 0.2 10*3/uL (0.0-0.87); Hematocrit 39.5 VOL% (35.7-47.0); Hemoglobin 13.2 GM/DL (12.0-16.0); Immature Granulocytes % 0.5 %; Immature Granulocytes Absolute 0.04 #; Lymphocytes # 3.2 10*3/uL (1.4-4.0); Lymphocytes % 42.7 % (21.3-54.2); Mean Corpuscular HGB Conc 33.4 GM/DL (32-36); Mean Platelet Volume 11.1 FL (9.6-12.0); Monocytes % 4.3 % (1.7-12.7); Neutrophils % 49.8 % (38.7-73.9); Platelet Count 210 T/CUMM (130-400); Red Blood Count 4.49 MC/CUMM (3.8-5.5); Red Cell Distribution Width 12.6 % (9.3-17.3); White Blood Count 7.5 T/CUMM (4-12)
[2020-09-05 05:04] LABS: Albumin 2.8 G/DL (3.4-5.0); Bilirubin,Total 0.4 MG/DL (0.2-1.0); Calcium 8.6 MG/DL (8.5-10.1); Osmolality,Calculated 279.1 MOS/KG (273-304); Potassium 3.6 MMOL/L (3.5-5.1); Total Protein 6.7 G/DL (6.4-8.2)
[2020-09-05] MEDS: LEVOTHYROXINE 100 MCG TABLET PO SCH (06:25)
[2020-09-05] MEDS: TOPIRAMATE 100 MG TABLET PO SCH ×2 (08:55→21:19)
[2020-09-05] MEDS: PANTOPRAZOLE 40 MG TABLET PO SCH (08:56)
[2020-09-05] MEDS: FLUCONAZOLE 100 MG TABLET PO SCH (08:56)
[2020-09-05] MEDS: lisinopriL 10 MG TABLET PO SCH (08:56)
[2020-09-05] MEDS: INSULIN LISPRO 100 UNIT/ML SUBCUT SCH ×4 (08:56→21:20)
[2020-09-05] MEDS: INSULIN NPH/REGULAR 70/30 100 UNIT/ML SUBCUT SCH ×2 (08:57→21:19)
[2020-09-06] MEDS: cefTRIAXone 1,000 MG in SODIUM CHLORIDE 0.9% 100 ML IV SCH (01:05)
[2020-09-06 05:25] LABS: Basophils # 0.1 10*3/uL (0.0-0.2); Basophils % 0.7 % (0.0-0.8); Eosinophils # 0.2 10*3/uL (0.0-0.87); Eosinophils % 2.2 % (0.00-10.9); Hematocrit 39.7 VOL% (35.7-47.0); Hemoglobin 12.4 GM/DL (12.0-16.0); Immature Granulocytes % 0.3 %; Immature Granulocytes Absolute 0.02 #; Lymphocytes # 3.2 10*3/uL (1.4-4.0); Lymphocytes % 46.2 % (21.3-54.2); Mean Corpuscular HGB Conc 31.2 GM/DL (32-36); Mean Platelet Volume 10.4 FL (9.6-12.0); Monocytes % 5.3 % (1.7-12.7); Neutrophils % 45.3 % (38.7-73.9); Platelet Count 206 T/CUMM (130-400); Red Blood Count 4.27 MC/CUMM (3.8-5.5); Red Cell Distribution Width 12.5 % (9.3-17.3); White Blood Count 6.8 T/CUMM (4-12)
[2020-09-06 05:51] LABS: Osmolality,Calculated 282.5 MOS/KG (273-304); Potassium 3.9 MMOL/L (3.5-5.1)
[2020-09-06] MEDS: LEVOTHYROXINE 100 MCG TABLET PO SCH (06:05)
[2020-09-06] MEDS: SODIUM CHLORIDE 0.9% 1,000 ML IV SCH (06:09)
[2020-09-06] MEDS: INSULIN LISPRO 100 UNIT/ML SUBCUT SCH ×4 (09:03→21:35)
[2020-09-06] MEDS: INSULIN NPH/REGULAR 70/30 100 UNIT/ML SUBCUT SCH ×2 (09:03→21:36)
[2020-09-06] MEDS: TOPIRAMATE 100 MG TABLET PO SCH ×2 (09:04→21:37)
[2020-09-06] MEDS: FLUCONAZOLE 100 MG TABLET PO SCH (09:04)
[2020-09-06] MEDS: PANTOPRAZOLE 40 MG TABLET PO SCH (09:04)
[2020-09-06] MEDS: lisinopriL 10 MG TABLET PO SCH (09:52)
[2020-09-06] MEDS: ESCITALOPRAM 10 MG TABLET PO SCH (10:38)
[2020-09-07] MEDS: cefTRIAXone 1,000 MG in SODIUM CHLORIDE 0.9% 100 ML IV SCH (00:40)
[2020-09-07 05:31] LABS: Basophils # 0.1 10*3/uL (0.0-0.2); Basophils % 0.8 % (0.0-0.8); Eosinophils # 0.2 10*3/uL (0.0-0.87); Eosinophils % 2.8 % (0.00-10.9); Hematocrit 37.3 VOL% (35.7-47.0); Hemoglobin 12.4 GM/DL (12.0-16.0); Immature Granulocytes % 0.3 %; Immature Granulocytes Absolute 0.02 #; Lymphocytes # 2.5 10*3/uL (1.4-4.0); Lymphocytes % 34.6 % (21.3-54.2); Mean Corpuscular HGB Conc 33.2 GM/DL (32-36); Mean Corpuscular Volume 88.8 FL (87-102); Mean Platelet Volume 10.8 FL (9.6-12.0); Monocytes % 5.1 % (1.7-12.7); Neutrophils % 56.4 % (38.7-73.9); Platelet Count 193 T/CUMM (130-400); Red Cell Distribution Width 12.6 % (9.3-17.3); White Blood Count 7.3 T/CUMM (4-12)
[2020-09-07 05:49] LABS: Calcium 8.9 MG/DL (8.5-10.1); Osmolality,Calculated 280.5 MOS/KG (273-304); Potassium 3.5 MMOL/L (3.5-5.1)
[2020-09-07] MEDS: LEVOTHYROXINE 100 MCG TABLET PO SCH (08:01)
[2020-09-07] MEDS: INSULIN NPH/REGULAR 70/30 100 UNIT/ML SUBCUT SCH (08:23)
[2020-09-07] MEDS: ESCITALOPRAM 10 MG TABLET PO SCH (08:24)
[2020-09-07] MEDS: PANTOPRAZOLE 40 MG TABLET PO SCH (08:24)
[2020-09-07] MEDS: INSULIN LISPRO 100 UNIT/ML SUBCUT SCH ×2 (08:24→11:32)
[2020-09-07] MEDS: TOPIRAMATE 100 MG TABLET PO SCH (08:24)
[2020-09-07] MEDS ORDERED: lisinopriL 10 MG TABLET PO SCH (09:00)
[2020-09-07 11:02] VITALS: BP 100/60
== END 2020-09-07 14:45 | disposition home or self-care (01) | DRG 640 ==
LOC: N.ED 16:00 → N.EDINP 16:00 → N.3E 22:24
PROVIDERS: ADMIT Internal Medicine; ATTEND Internal Medicine

== ENCOUNTER 2021-07-10 17:27 | Observation (INO) ==
[2021-07-10 18:20] LABS: Basophils % 0.6 % (0.0-0.8); Eosinophils # 0.1 10*3/uL (0.0-0.87); Eosinophils % 1.6 % (0.00-10.9); Hematocrit 44.7 VOL% (35.7-47.0); Hemoglobin 14.6 GM/DL (12.0-16.0); Immature Granulocytes % 0.6 %; Immature Granulocytes Absolute 0.04 #; Lymphocytes % 28.2 % (21.3-54.2); Mean Corpuscular HGB Conc 32.7 GM/DL (32-36); Mean Corpuscular Volume 91.2 FL (87-102); Mean Platelet Volume 10.2 FL (9.6-12.0); Monocytes # 0.3 10*3/uL (0.11-0.8); Monocytes % 4.1 % (1.7-12.7); Neutrophils % 64.9 % (38.7-73.9); Platelet Count 213 T/CUMM (130-400); Red Cell Distribution Width 12.6 % (9.3-17.3)
[2021-07-10 18:53] LABS: Albumin 3.5 G/DL (3.4-5.0); Bilirubin,Total 0.4 MG/DL (0.20-1.00); Calcium 9.7 MG/DL (8.5-10.1); Osmolality,Calculated 280.4 MOS/KG (273-304); Potassium 4.3 MMOL/L (3.5-5.1); Total Protein 7.5 G/DL (6.4-8.2)
[2021-07-10] MEDS ORDERED: NITROGLYCERIN SL 0.4 MG TABLET SL STA (19:40)
[2021-07-10] MEDS ORDERED: NITROGLYCERIN SL 0.4 MG TABLET SL ONE (19:41)
[2021-07-10] MEDS ORDERED: SODIUM CHLORIDE 0.9% 1,000 ML IV STA (19:43)
[2021-07-10 21:11] LABS: Bacteria,Urine Occasional /HPF (Few); Hyaline Casts,Urine 3 /LPF (0-3); Mucus,Urine Occasional /LPF (Occasional); RBC,Urine 1 /HPF (0-4); Squamous Epithelial Cell,Urine Occasional /HPF (0-10)
[2021-07-10 21:13] LABS: Bilirubin,Urine Negative (Negative); Blood, Urine Negative (Negative); Glucose,Urine (UA) Negative (Negative); Ketones,Urine Negative (Negative); Nitrite,Urine Negative (Negative); Protein,Urine Negative (Negative); Urine Appearance Clear (Clear); Urine Color Yellow (Yellow); Urine Specific Gravity 1.015 (1.001-1.035); Urine Urobilinogen 0.2 eU/dL (<2.0); Urine pH 5.5 (4.5-8.0)
[2021-07-10] MEDS ORDERED: ONDANSETRON 4 MG/2 ML VIAL IV PRN (22:29)
[2021-07-10] MEDS ORDERED: diphenhydrAMINE CAP 25 MG CAPSULE PO PRN (22:29)
[2021-07-10] MEDS ORDERED: DEXTROSE 50% 25 GM/50 ML VIAL IV PRN (22:29)
[2021-07-10] MEDS ORDERED: hydrALAZINE 20 MG/1 ML VIAL IV PRN (22:29)
[2021-07-10] MEDS ORDERED: ACETAMINOPHEN 325 MG TABLET PO PRN (22:29)
[2021-07-10] MEDS ORDERED: guaiFENesin/DM ER 600-30 MG TABLET PO PRN (22:29)
[2021-07-10] MEDS ORDERED: NICOTINE 21 MG/24 HR PATCH TRANSDERM PRN (22:29)
[2021-07-10] MEDS ORDERED: ZALEPLON 5 MG CAPSULE PO PRN (22:29)
[2021-07-10] MEDS ORDERED: GLUCAGON 1 MG VIAL IM PRN ×2 (22:29)
[2021-07-10] MEDS ORDERED: DEXTROSE 10% 250 ML BAG IV PRN (22:39)
[2021-07-10] MEDS: HEPARIN 5,000 UNIT/1 ML VIAL SUBCUT SCH (23:59)
[2021-07-11 01:40] LABS: Basophils % 0.6 % (0.0-0.8); Eosinophils # 0.2 10*3/uL (0.0-0.87); Eosinophils % 2.7 % (0.00-10.9); Hematocrit 38.5 VOL% (35.7-47.0); Hemoglobin 12.6 GM/DL (12.0-16.0); Immature Granulocytes % 0.4 %; Immature Granulocytes Absolute 0.03 #; Lymphocytes # 2.5 10*3/uL (1.4-4.0); Lymphocytes % 35.1 % (21.3-54.2); Mean Corpuscular HGB Conc 32.7 GM/DL (32-36); Mean Corpuscular Volume 90.6 FL (87-102); Mean Platelet Volume 10.2 FL (9.6-12.0); Monocytes # 0.3 10*3/uL (0.11-0.8); Monocytes % 3.9 % (1.7-12.7); Neutrophils % 57.3 % (38.7-73.9); Platelet Count 200 T/CUMM (130-400); Red Blood Count 4.25 MC/CUMM (3.8-5.5); Red Cell Distribution Width 12.8 % (9.3-17.3); White Blood Count 7.1 T/CUMM (4-12)
[2021-07-11 01:56] LABS: Calcium 9.1 MG/DL (8.5-10.1); Osmolality,Calculated 279.2 MOS/KG (273-304); Potassium 3.8 MMOL/L (3.5-5.1)
[2021-07-11] MEDS ORDERED: LEVOTHYROXINE 200 MCG TABLET PO SCH (09:00)
[2021-07-11] MEDS ORDERED: PANTOPRAZOLE 40 MG TABLET PO SCH (09:00)
[2021-07-11] MEDS ORDERED: lisinopriL 10 MG TABLET PO SCH (09:00)
[2021-07-11] MEDS: INSULIN LISPRO 100 UNIT/ML SUBCUT SCH ×2 (09:22→12:37)
[2021-07-11] MEDS ORDERED: POTASSIUM CHLORIDE 20 MEQ TABLET PO ONE (09:49)
[2021-07-11] MEDS ORDERED: MAGNESIUM SULF RIDER 2 GM/50 ML PREMIX IV ONE (09:49)
[2021-07-11] MEDS: HEPARIN 5,000 UNIT/1 ML VIAL SUBCUT SCH (10:12)
[2021-07-11] MEDS ORDERED: ERGOCALCIFEROL 50,000 UNIT CAPSULE PO SCH (10:30)
[2021-07-11] MEDS ORDERED: TRIAMCINOLONE 0.025% CREAM 15 GM TUBE TOP SCH (10:31)
[2021-07-11] MEDS ORDERED: SODIUM CHLORIDE 0.45% 1,000 ML IV SCH (11:00)
[2021-07-11] MEDS: SODIUM CHLORIDE 0.9% 1,000 ML IV SCH ×2 (12:10)
[2021-07-11 12:31] VITALS: BP 143/82
== END 2021-07-11 16:15 | disposition home or self-care (01) ==
LOC: N.EDINP 17:27 → N.ED 17:27 → N.TELEN 07-11 00:18
PROVIDERS: ADMIT Internal Medicine Geriatric Medicine; ATTEND Internal Medicine Geriatric Medicine

== ENCOUNTER 2022-04-17 01:10 | Inpatient (IN) ==
[2022-04-17] MEDS ORDERED: PANTOPRAZOLE 40 MG VIAL IV STA (02:03)
[2022-04-17] MEDS ORDERED: SODIUM CHLORIDE 0.9% 1,000 ML IV STA (02:03)
[2022-04-17] MEDS ORDERED: ONDANSETRON 4 MG/2 ML VIAL IV STA (02:03)
[2022-04-17 02:33] LABS: Basophils # 0.1 10*3/uL (0.0-0.2); Basophils % 0.6 % (0.0-0.8); Eosinophils # 0.2 10*3/uL (0.0-0.87); Eosinophils % 2.5 % (0.00-10.9); Hematocrit 37.8 VOL% (35.7-47.0); Immature Granulocytes Absolute 0.08 #; Lymphocytes # 1.7 10*3/uL (1.4-4.0); Lymphocytes % 19.9 % (21.3-54.2); Mean Corpuscular HGB Conc 31.7 GM/DL (32-36); Mean Corpuscular Volume 92.9 FL (87-102); Mean Platelet Volume 10.2 FL (9.6-12.0); Monocytes # 0.3 10*3/uL (0.11-0.8); Monocytes % 3.5 % (1.7-12.7); Neutrophils % 72.5 % (38.7-73.9); Platelet Count 248 T/CUMM (130-400); Red Blood Count 4.07 MC/CUMM (3.8-5.5); Red Cell Distribution Width 13.4 % (9.3-17.3); White Blood Count 8.3 T/CUMM (4-12)
[2022-04-17 02:34] LABS: Albumin 3.1 G/DL (3.4-5.0); Bilirubin,Total 0.6 MG/DL (0.20-1.00); Osmolality,Calculated 279.5 MOS/KG (273-304); Potassium 3.9 MMOL/L (3.5-5.1); Total Protein 8.1 G/DL (6.4-8.2)
[2022-04-17] MEDS ORDERED: MAGNESIUM SULF RIDER 2 GM/50 ML PREMIX IV STA (03:05)
[2022-04-17 03:17] LABS: Hyaline Casts,Urine 1 /LPF (0-3); Mucus,Urine Occasional /LPF (Occasional); RBC,Urine 1 /HPF (0-4); Squamous Epithelial Cell,Urine Occasional /HPF (0-10)
[2022-04-17 03:18] LABS: Bilirubin,Urine Small mg/dL (Negative); Blood, Urine Negative (Negative); Glucose,Urine (UA) 250 mg/dL (Negative); Ketones,Urine 15 mg/dL (Negative); Nitrite,Urine Negative (Negative); Protein,Urine Negative (Negative); Urine Appearance Clear (Clear); Urine Color Yellow (Yellow); Urine Specific Gravity > 1.030 (1.001-1.035); Urine pH 5.5 (4.5-8.0)
[2022-04-17] MEDS: SODIUM CHLORIDE 0.9% 1,000 ML IV SCH (06:01)
[2022-04-17] MEDS: INSULIN LISPRO 100 UNIT/ML SUBCUT SCH ×3 (06:20→18:04)
[2022-04-17] MEDS: LEVOTHYROXINE 125 MCG TABLET PO SCH (09:41)
[2022-04-17] MEDS: PANTOPRAZOLE 40 MG TABLET PO SCH (09:42)
[2022-04-17] MEDS: ESCITALOPRAM 10 MG TABLET PO SCH (09:42)
[2022-04-17] MEDS: guaiFENesin 200 MG/10 ML UDCUP PO PRN ×2 (15:18→21:20)
[2022-04-17] MEDS: ENOXAPARIN 40 MG/0.4 ML SYRINGE SUBCUT SCH (21:20)
[2022-04-18] MEDS: INSULIN LISPRO 100 UNIT/ML SUBCUT SCH ×4 (02:45→17:46)
[2022-04-18] MEDS: SODIUM CHLORIDE 0.9% 1,000 ML IV SCH ×5 (02:45→17:24)
[2022-04-18] MEDS: guaiFENesin 200 MG/10 ML UDCUP PO PRN ×3 (02:46→14:02)
[2022-04-18 05:37] LABS: Basophils % 0.4 % (0.0-0.8); Eosinophils # 0.1 10*3/uL (0.0-0.87); Eosinophils % 1.1 % (0.00-10.9); Hematocrit 34.2 VOL% (35.7-47.0); Hemoglobin 10.7 GM/DL (12.0-16.0); Immature Granulocytes % 0.7 %; Immature Granulocytes Absolute 0.04 #; Lymphocytes # 0.5 10*3/uL (1.4-4.0); Lymphocytes % 8.4 % (21.3-54.2); Mean Corpuscular HGB Conc 31.3 GM/DL (32-36); Mean Corpuscular Volume 94.2 FL (87-102); Mean Platelet Volume 10.3 FL (9.6-12.0); Monocytes # 0.2 10*3/uL (0.11-0.8); Monocytes % 3.9 % (1.7-12.7); Neutrophils % 85.5 % (38.7-73.9); Platelet Count 186 T/CUMM (130-400); Red Blood Count 3.63 MC/CUMM (3.8-5.5); Red Cell Distribution Width 13.2 % (9.3-17.3); White Blood Count 5.7 T/CUMM (4-12)
[2022-04-18 06:07] LABS: Albumin 2.6 G/DL (3.4-5.0); Bilirubin,Total 0.5 MG/DL (0.20-1.00); Calcium 8.8 MG/DL (8.5-10.1); Osmolality,Calculated 281.1 MOS/KG (273-304); Potassium 4.1 MMOL/L (3.5-5.1); Total Protein 6.5 G/DL (6.4-8.2)
[2022-04-18] MEDS ORDERED: MAGNESIUM SULF RIDER 2 GM/50 ML PREMIX IV PRN (06:27)
[2022-04-18] MEDS: LEVOTHYROXINE 125 MCG TABLET PO SCH (06:43)
[2022-04-18] MEDS: ESCITALOPRAM 10 MG TABLET PO SCH (08:38)
[2022-04-18] MEDS: ACETAMINOPHEN 325 MG TABLET PO PRN (08:38)
[2022-04-18] MEDS: PANTOPRAZOLE 40 MG TABLET PO SCH (08:39)
[2022-04-18] MEDS ORDERED: LOPERAMIDE 2 MG CAPSULE PO SCH (15:00)
[2022-04-18] MEDS ORDERED: POLYETHYLENE GLYCOL POWDER 255 GM BOTTLE PO ONE (15:00)
[2022-04-18] MEDS: ENOXAPARIN 40 MG/0.4 ML SYRINGE SUBCUT SCH (21:00)
[2022-04-19] MEDS: guaiFENesin 200 MG/10 ML UDCUP PO PRN ×2 (00:01→21:30)
[2022-04-19] MEDS: INSULIN LISPRO 100 UNIT/ML SUBCUT SCH ×5 (01:13→21:30)
[2022-04-19 05:39] LABS: Basophils % 0.2 % (0.0-0.8); Eosinophils # 0.1 10*3/uL (0.0-0.87); Eosinophils % 1.1 % (0.00-10.9); Hemoglobin 9.7 GM/DL (12.0-16.0); Immature Granulocytes % 0.9 %; Immature Granulocytes Absolute 0.04 #; Lymphocytes # 0.8 10*3/uL (1.4-4.0); Lymphocytes % 16.6 % (21.3-54.2); Mean Corpuscular HGB Conc 31.3 GM/DL (32-36); Mean Corpuscular Volume 93.1 FL (87-102); Mean Platelet Volume 10.2 FL (9.6-12.0); Monocytes # 0.2 10*3/uL (0.11-0.8); Neutrophils % 76.2 % (38.7-73.9); Platelet Count 163 T/CUMM (130-400); Red Blood Count 3.33 MC/CUMM (3.8-5.5); Red Cell Distribution Width 13.5 % (9.3-17.3); White Blood Count 4.6 T/CUMM (4-12)
[2022-04-19 05:58] LABS: Alanine Aminotransferase 72 U/L (13-56); Albumin 2.3 G/DL (3.4-5.0); Alkaline Phosphatase 334 U/L (45-117); Aspartate Amino Transferase 89 U/L (0-37); Bilirubin,Total < 0.39 MG/DL (0.20-1.00); Blood Urea Nitrogen 13 MG/DL (7-18); Calcium 7.9 MG/DL (8.5-10.1); Carbon Dioxide 23 MMOL/L (21-32); Chloride 103 MMOL/L (98-107); Glucose 210 MG/DL (74-106); Osmolality,Calculated 273.2 MOS/KG (273-304); Potassium 3.3 MMOL/L (3.5-5.1); Sodium 134 MMOL/L (136-145); Total Protein 5.9 G/DL (6.4-8.2)
[2022-04-19] MEDS: SODIUM CHLORIDE 0.9% 1,000 ML IV SCH ×3 (06:28→15:30)
[2022-04-19] MEDS: LEVOTHYROXINE 125 MCG TABLET PO SCH (06:28)
[2022-04-19] MEDS ORDERED: POTASSIUM CHLORIDE 20 MEQ TABLET PO ONE ×2 (07:32→11:00)
[2022-04-19] MEDS: PANTOPRAZOLE 40 MG TABLET PO SCH (08:39)
[2022-04-19] MEDS: ESCITALOPRAM 10 MG TABLET PO SCH (08:39)
[2022-04-19] MEDS ORDERED: INSULIN GLARGINE 100 UNIT/ML SUBCUT SCH (12:00)
[2022-04-19] MEDS: metroNIDAZOLE INJ 500 MG/100 ML PREMIX IV SCH ×2 (12:43→21:30)
[2022-04-19] MEDS: ENOXAPARIN 40 MG/0.4 ML SYRINGE SUBCUT SCH (21:30)
[2022-04-20] MEDS: SODIUM CHLORIDE 0.9% 1,000 ML IV SCH (03:37)
[2022-04-20] MEDS: guaiFENesin 200 MG/10 ML UDCUP PO PRN ×2 (04:03→09:57)
[2022-04-20 05:21] LABS: Basophils % 0.3 % (0.0-0.8); Eosinophils # 0.1 10*3/uL (0.0-0.87); Eosinophils % 1.3 % (0.00-10.9); Hematocrit 30.6 VOL% (35.7-47.0); Hemoglobin 9.5 GM/DL (12.0-16.0); Immature Granulocytes % 0.3 %; Immature Granulocytes Absolute 0.01 #; Lymphocytes # 1.2 10*3/uL (1.4-4.0); Lymphocytes % 30.9 % (21.3-54.2); Mean Platelet Volume 10.2 FL (9.6-12.0); Monocytes # 0.2 10*3/uL (0.11-0.8); Monocytes % 5.6 % (1.7-12.7); Neutrophils % 61.6 % (38.7-73.9); Platelet Count 163 T/CUMM (130-400); Red Blood Count 3.22 MC/CUMM (3.8-5.5); Red Cell Distribution Width 13.7 % (9.3-17.3); White Blood Count 3.9 T/CUMM (4-12)
[2022-04-20 05:38] LABS: Alanine Aminotransferase 54 U/L (13-56); Albumin 2.2 G/DL (3.4-5.0); Alkaline Phosphatase 297 U/L (45-117); Aspartate Amino Transferase 54 U/L (0-37); Bilirubin,Total < 0.39 MG/DL (0.20-1.00); Blood Urea Nitrogen 12 MG/DL (7-18); Calcium 7.9 MG/DL (8.5-10.1); Carbon Dioxide 22 MMOL/L (21-32); Chloride 108 MMOL/L (98-107); Glucose 231 MG/DL (74-106); Osmolality,Calculated 279.8 MOS/KG (273-304); Potassium 4.2 MMOL/L (3.5-5.1); Sodium 137 MMOL/L (136-145); Total Protein 5.7 G/DL (6.4-8.2)
[2022-04-20] MEDS: LEVOTHYROXINE 125 MCG TABLET PO SCH (06:11)
[2022-04-20] MEDS: metroNIDAZOLE INJ 500 MG/100 ML PREMIX IV SCH ×3 (06:11→20:55)
[2022-04-20] MEDS: PANTOPRAZOLE 40 MG TABLET PO SCH (09:57)
[2022-04-20] MEDS: ESCITALOPRAM 10 MG TABLET PO SCH (09:57)
[2022-04-20] MEDS: INSULIN GLARGINE 100 UNIT/ML SUBCUT SCH (09:58)
[2022-04-20] MEDS: INSULIN LISPRO 100 UNIT/ML SUBCUT SCH ×4 (09:58→20:56)
[2022-04-20] MEDS: cefTRIAXone 1,000 MG in SODIUM CHLORIDE 0.9% 100 ML IV SCH (14:35)
[2022-04-20] MEDS: ONDANSETRON 4 MG/2 ML VIAL IV PRN (14:46)
[2022-04-20] MEDS: ENOXAPARIN 40 MG/0.4 ML SYRINGE SUBCUT SCH (20:56)
[2022-04-21] MEDS: guaiFENesin 200 MG/10 ML UDCUP PO PRN ×2 (04:05→17:16)
[2022-04-21] MEDS: LEVOTHYROXINE 125 MCG TABLET PO SCH (05:55)
[2022-04-21] MEDS: metroNIDAZOLE INJ 500 MG/100 ML PREMIX IV SCH ×3 (05:55→20:45)
[2022-04-21 06:06] LABS: Basophils % 0.2 % (0.0-0.8); Eosinophils # 0.1 10*3/uL (0.0-0.87); Eosinophils % 1.7 % (0.00-10.9); Hemoglobin 9.9 GM/DL (12.0-16.0); Immature Granulocytes % 0.4 %; Immature Granulocytes Absolute 0.02 #; Lymphocytes # 1.4 10*3/uL (1.4-4.0); Lymphocytes % 29.9 % (21.3-54.2); Mean Corpuscular HGB Conc 30.9 GM/DL (32-36); Mean Corpuscular Volume 93.8 FL (87-102); Mean Platelet Volume 9.9 FL (9.6-12.0); Monocytes # 0.2 10*3/uL (0.11-0.8); Monocytes % 4.5 % (1.7-12.7); Neutrophils % 63.3 % (38.7-73.9); Platelet Count 175 T/CUMM (130-400); Red Blood Count 3.41 MC/CUMM (3.8-5.5); Red Cell Distribution Width 13.7 % (9.3-17.3); White Blood Count 4.7 T/CUMM (4-12)
[2022-04-21 06:32] LABS: Albumin 2.3 G/DL (3.4-5.0); Bilirubin,Total 0.4 MG/DL (0.20-1.00); Calcium 8.2 MG/DL (8.5-10.1); Osmolality,Calculated 278.8 MOS/KG (273-304); Total Protein 6.2 G/DL (6.4-8.2)
[2022-04-21] MEDS: INSULIN LISPRO 100 UNIT/ML SUBCUT SCH ×4 (09:23→20:44)
[2022-04-21] MEDS: INSULIN GLARGINE 100 UNIT/ML SUBCUT SCH (09:24)
[2022-04-21] MEDS: ESCITALOPRAM 10 MG TABLET PO SCH (09:24)
[2022-04-21] MEDS: PANTOPRAZOLE 40 MG TABLET PO SCH (09:24)
[2022-04-21 12:47] LABS: Arterial Base Excess iSTAT -2 MMOL/L (-2.5-2.5); Arterial O2 Saturation iSTAT 84 % (95-100); Arterial PCO2 iSTAT 43 MM HG (35-48); Arterial PO2 iSTAT 51 MM HG (80-95); Arterial Total CO2 iSTAT 25 MMO/L (23-27); Arterial pH iSTAT 7.353 (7.35-7.45)
[2022-04-21] MEDS ORDERED: FUROSEMIDE 40 MG/4 ML VIAL IV ONE (15:38)
[2022-04-21] MEDS: cefTRIAXone 1,000 MG in SODIUM CHLORIDE 0.9% 100 ML IV SCH (16:23)
[2022-04-21] MEDS: ENOXAPARIN 40 MG/0.4 ML SYRINGE SUBCUT SCH (20:44)
[2022-04-21] MEDS: ONDANSETRON 4 MG/2 ML VIAL IV PRN (20:51)
[2022-04-22] MEDS: metroNIDAZOLE INJ 500 MG/100 ML PREMIX IV SCH ×3 (04:46→21:16)
[2022-04-22] MEDS: ONDANSETRON 4 MG/2 ML VIAL IV PRN (04:55)
[2022-04-22] MEDS: LEVOTHYROXINE 125 MCG TABLET PO SCH (05:30)
[2022-04-22 06:08] LABS: Basophils % 0.2 % (0.0-0.8); Eosinophils # 0.1 10*3/uL (0.0-0.87); Eosinophils % 1.7 % (0.00-10.9); Hemoglobin 10.2 GM/DL (12.0-16.0); Immature Granulocytes % 0.4 %; Immature Granulocytes Absolute 0.02 #; Lymphocytes # 1.3 10*3/uL (1.4-4.0); Lymphocytes % 27.6 % (21.3-54.2); Mean Corpuscular HGB Conc 31.9 GM/DL (32-36); Mean Platelet Volume 9.6 FL (9.6-12.0); Monocytes # 0.3 10*3/uL (0.11-0.8); Monocytes % 5.6 % (1.7-12.7); Neutrophils % 64.5 % (38.7-73.9); Platelet Count 199 T/CUMM (130-400); Red Blood Count 3.48 MC/CUMM (3.8-5.5); Red Cell Distribution Width 13.7 % (9.3-17.3); White Blood Count 4.78 T/CUMM (4-12)
[2022-04-22 06:33] LABS: Albumin 2.4 G/DL (3.4-5.0); Bilirubin,Total 0.5 MG/DL (0.20-1.00); Calcium 8.2 MG/DL (8.5-10.1); Osmolality,Calculated 279.4 MOS/KG (273-304); Potassium 3.9 MMOL/L (3.5-5.1); Total Protein 6.4 G/DL (6.4-8.2)
[2022-04-22] MEDS: INSULIN LISPRO 100 UNIT/ML SUBCUT SCH ×4 (07:34→21:16)
[2022-04-22] MEDS: PANTOPRAZOLE 40 MG TABLET PO SCH (10:44)
[2022-04-22] MEDS: INSULIN GLARGINE 100 UNIT/ML SUBCUT SCH (10:44)
[2022-04-22] MEDS: ESCITALOPRAM 10 MG TABLET PO SCH (10:44)
[2022-04-22] MEDS: ACETAMINOPHEN 325 MG TABLET PO PRN (12:20)
[2022-04-22] MEDS: cefTRIAXone 1,000 MG in SODIUM CHLORIDE 0.9% 100 ML IV SCH (15:52)
[2022-04-22] MEDS: ENOXAPARIN 40 MG/0.4 ML SYRINGE SUBCUT SCH (21:16)
[2022-04-22] MEDS ORDERED: diphenhydrAMINE CAP 25 MG CAPSULE PO PRN (23:39)
[2022-04-23] MEDS: metroNIDAZOLE INJ 500 MG/100 ML PREMIX IV SCH ×3 (05:05→20:37)
[2022-04-23 05:24] LABS: Basophils % 0.2 % (0.0-0.8); Eosinophils # 0.1 10*3/uL (0.0-0.87); Eosinophils % 2.4 % (0.00-10.9); Hematocrit 31.1 VOL% (35.7-47.0); Hemoglobin 9.9 GM/DL (12.0-16.0); Immature Granulocytes % 0.4 %; Immature Granulocytes Absolute 0.02 #; Lymphocytes # 1.5 10*3/uL (1.4-4.0); Lymphocytes % 29.8 % (21.3-54.2); Mean Corpuscular HGB Conc 31.8 GM/DL (32-36); Mean Corpuscular Volume 91.5 FL (87-102); Mean Platelet Volume 9.5 FL (9.6-12.0); Monocytes # 0.3 10*3/uL (0.11-0.8); Monocytes % 5.4 % (1.7-12.7); Neutrophils % 61.8 % (38.7-73.9); Platelet Count 210 T/CUMM (130-400); Red Cell Distribution Width 13.6 % (9.3-17.3); White Blood Count 5.04 T/CUMM (4-12)
[2022-04-23] MEDS: ACETAMINOPHEN 325 MG TABLET PO PRN (05:26)
[2022-04-23] MEDS: LEVOTHYROXINE 125 MCG TABLET PO SCH (05:30)
[2022-04-23 05:44] LABS: Albumin 2.3 G/DL (3.4-5.0); Bilirubin,Total 0.5 MG/DL (0.20-1.00); Calcium 8.3 MG/DL (8.5-10.1); Osmolality,Calculated 280.3 MOS/KG (273-304); Potassium 3.3 MMOL/L (3.5-5.1); Total Protein 6.4 G/DL (6.4-8.2)
[2022-04-23] MEDS: INSULIN LISPRO 100 UNIT/ML SUBCUT SCH ×4 (07:31→20:35)
[2022-04-23] MEDS: INSULIN GLARGINE 100 UNIT/ML SUBCUT SCH (08:10)
[2022-04-23] MEDS: ESCITALOPRAM 10 MG TABLET PO SCH (08:10)
[2022-04-23] MEDS: PANTOPRAZOLE 40 MG TABLET PO SCH (08:10)
[2022-04-23] MEDS: cefTRIAXone 1,000 MG in SODIUM CHLORIDE 0.9% 100 ML IV SCH (09:14)
[2022-04-23] MEDS: MECLIZINE 25 MG TABLET PO PRN ×2 (13:10→20:39)
[2022-04-23] MEDS ORDERED: POTASSIUM CHLORIDE 20 MEQ TABLET PO ONE (19:18)
[2022-04-23] MEDS: guaiFENesin 200 MG/10 ML UDCUP PO PRN (20:35)
[2022-04-23] MEDS: ENOXAPARIN 40 MG/0.4 ML SYRINGE SUBCUT SCH (20:35)
[2022-04-23] MEDS: ZINC OXIDE PASTE 113 GM TUBE TOP SCH (20:44)
[2022-04-24] MEDS: LEVOTHYROXINE 125 MCG TABLET PO SCH (05:51)
[2022-04-24] MEDS: metroNIDAZOLE INJ 500 MG/100 ML PREMIX IV SCH ×3 (05:51→20:33)
[2022-04-24] MEDS: PANTOPRAZOLE 40 MG TABLET PO SCH (08:38)
[2022-04-24] MEDS: INSULIN GLARGINE 100 UNIT/ML SUBCUT SCH (08:38)
[2022-04-24] MEDS: ESCITALOPRAM 10 MG TABLET PO SCH (08:38)
[2022-04-24] MEDS: INSULIN LISPRO 100 UNIT/ML SUBCUT SCH ×4 (08:39→20:33)
[2022-04-24] MEDS: ZINC OXIDE PASTE 113 GM TUBE TOP SCH ×2 (08:42→20:34)
[2022-04-24] MEDS: cefTRIAXone 1,000 MG in SODIUM CHLORIDE 0.9% 100 ML IV SCH (08:42)
[2022-04-24] MEDS: guaiFENesin 200 MG/10 ML UDCUP PO PRN (10:44)
[2022-04-24] MEDS: MECLIZINE 25 MG TABLET PO PRN ×2 (10:44→23:47)
[2022-04-24] MEDS: ENOXAPARIN 40 MG/0.4 ML SYRINGE SUBCUT SCH (20:33)
[2022-04-24] MEDS: ACETAMINOPHEN 325 MG TABLET PO PRN (23:47)
[2022-04-25] MEDS: LEVOTHYROXINE 125 MCG TABLET PO SCH (05:51)
[2022-04-25] MEDS: metroNIDAZOLE INJ 500 MG/100 ML PREMIX IV SCH (05:51)
[2022-04-25] MEDS: INSULIN LISPRO 100 UNIT/ML SUBCUT SCH ×4 (08:39→21:39)
[2022-04-25] MEDS: PANTOPRAZOLE 40 MG TABLET PO SCH (09:55)
[2022-04-25] MEDS: INSULIN GLARGINE 100 UNIT/ML SUBCUT SCH (09:56)
[2022-04-25] MEDS: ZINC OXIDE PASTE 113 GM TUBE TOP SCH ×3 (09:57→23:00)
[2022-04-25] MEDS: ESCITALOPRAM 10 MG TABLET PO SCH (10:36)
[2022-04-25] MEDS: cefTRIAXone 1,000 MG in SODIUM CHLORIDE 0.9% 100 ML IV SCH (10:36)
[2022-04-25] MEDS: MEROPENEM 500 MG in SODIUM CHLORIDE 0.9% 100 ML IV SCH ×3 (13:04→23:32)
[2022-04-25] MEDS: LINEZOLID 600 MG TABLET PO SCH ×2 (13:04→21:37)
[2022-04-25] MEDS: MECLIZINE 25 MG TABLET PO PRN (13:04)
[2022-04-25] MEDS: ENOXAPARIN 40 MG/0.4 ML SYRINGE SUBCUT SCH (21:39)
[2022-04-26] MEDS: LEVOTHYROXINE 125 MCG TABLET PO SCH (05:40)
[2022-04-26] MEDS: MEROPENEM 500 MG in SODIUM CHLORIDE 0.9% 100 ML IV SCH ×4 (05:40→22:41)
[2022-04-26] MEDS: ACETAMINOPHEN 325 MG TABLET PO PRN (05:40)
[2022-04-26 06:15] LABS: Calcium 8.5 MG/DL (8.5-10.1); Osmolality,Calculated 279.8 MOS/KG (273-304); Potassium 3.2 MMOL/L (3.5-5.1)
[2022-04-26 06:24] LABS: Basophils % 0.3 % (0.0-0.8); Eosinophils # 0.2 10*3/uL (0.0-0.87); Eosinophils % 2.8 % (0.00-10.9); Hematocrit 31.4 VOL% (35.7-47.0); Hemoglobin 9.9 GM/DL (12.0-16.0); Immature Granulocytes % 0.8 %; Immature Granulocytes Absolute 0.05 #; Lymphocytes # 1.6 10*3/uL (1.4-4.0); Lymphocytes % 25.4 % (21.3-54.2); Mean Corpuscular HGB Conc 31.5 GM/DL (32-36); Mean Corpuscular Volume 91.5 FL (87-102); Mean Platelet Volume 9.6 FL (9.6-12.0); Monocytes # 0.4 10*3/uL (0.11-0.8); Monocytes % 6.2 % (1.7-12.7); Neutrophils % 64.5 % (38.7-73.9); Platelet Count 278 T/CUMM (130-400); Red Blood Count 3.43 MC/CUMM (3.8-5.5); Red Cell Distribution Width 13.2 % (9.3-17.3); White Blood Count 6.45 T/CUMM (4-12)
[2022-04-26] MEDS: ZINC OXIDE PASTE 113 GM TUBE TOP SCH ×2 (09:20→21:15)
[2022-04-26] MEDS: INSULIN GLARGINE 100 UNIT/ML SUBCUT SCH (09:20)
[2022-04-26] MEDS: INSULIN LISPRO 100 UNIT/ML SUBCUT SCH ×4 (09:20→22:16)
[2022-04-26] MEDS: PANTOPRAZOLE 40 MG TABLET PO SCH (09:20)
[2022-04-26] MEDS: LINEZOLID 600 MG TABLET PO SCH ×2 (09:21→21:51)
[2022-04-26] MEDS: LUBIPROSTONE 8 MCG CAPSULE PO SCH (21:51)
[2022-04-26] MEDS: DOCUSATE SODIUM 100 MG CAPSULE PO SCH (21:51)
[2022-04-26] MEDS: POLYETHYLENE GLYCOL POWDER 17 GM PACK PO SCH (21:52)
[2022-04-26] MEDS: ENOXAPARIN 40 MG/0.4 ML SYRINGE SUBCUT SCH (21:52)
[2022-04-27 03:58] VITALS: BP 148/77
[2022-04-27] MEDS: MEROPENEM 500 MG in SODIUM CHLORIDE 0.9% 100 ML IV SCH ×2 (03:59→10:12)
[2022-04-27 05:21] LABS: Basophils % 0.4 % (0.0-0.8); Eosinophils # 0.1 10*3/uL (0.0-0.87); Eosinophils % 1.7 % (0.00-10.9); Hematocrit 31.8 VOL% (35.7-47.0); Immature Granulocytes % 1.1 %; Immature Granulocytes Absolute 0.06 #; Lymphocytes # 1.8 10*3/uL (1.4-4.0); Mean Corpuscular HGB Conc 31.4 GM/DL (32-36); Mean Corpuscular Volume 92.2 FL (87-102); Mean Platelet Volume 9.5 FL (9.6-12.0); Monocytes # 0.4 10*3/uL (0.11-0.8); Monocytes % 6.7 % (1.7-12.7); Neutrophils % 56.1 % (38.7-73.9); Platelet Count 277 T/CUMM (130-400); Red Blood Count 3.45 MC/CUMM (3.8-5.5); Red Cell Distribution Width 13.3 % (9.3-17.3); White Blood Count 5.36 T/CUMM (4-12)
[2022-04-27 05:35] LABS: Calcium 8.7 MG/DL (8.5-10.1); Osmolality,Calculated 280.8 MOS/KG (273-304); Potassium 3.3 MMOL/L (3.5-5.1)
[2022-04-27] MEDS: LEVOTHYROXINE 125 MCG TABLET PO SCH (06:38)
[2022-04-27] MEDS: DOCUSATE SODIUM 100 MG CAPSULE PO SCH (09:11)
[2022-04-27] MEDS: INSULIN LISPRO 100 UNIT/ML SUBCUT SCH (09:11)
[2022-04-27] MEDS: LUBIPROSTONE 8 MCG CAPSULE PO SCH (09:11)
[2022-04-27] MEDS: ZINC OXIDE PASTE 113 GM TUBE TOP SCH (09:12)
[2022-04-27] MEDS: PANTOPRAZOLE 40 MG TABLET PO SCH (09:12)
[2022-04-27] MEDS: POLYETHYLENE GLYCOL POWDER 17 GM PACK PO SCH (09:12)
[2022-04-27] MEDS: LINEZOLID 600 MG TABLET PO SCH (09:13)
[2022-04-27] MEDS: INSULIN GLARGINE 100 UNIT/ML SUBCUT SCH (09:13)
[2022-04-27] MEDS ORDERED: MAGNESIUM SULF INJ 3 GM in SODIUM CHLORIDE 0.9% 100 ML IV ONE (10:13)
[2022-04-27] MEDS ORDERED: POLYETHYLENE GLYCOL POWDER 17 GM PACK PO PRN (10:19)
[2022-04-27] MEDS ORDERED: POTASSIUM CHLORIDE 20 MEQ TABLET PO ONE (11:00)
[2022-04-27] MEDS ORDERED: MAGNESIUM SULFATE 1 GM/2 ML VIAL IM ONE (11:00)
[2022-04-27] MEDS ORDERED: DOXYCYCLINE HYCLATE 100 MG CAPSULE PO SCH (21:00)
[2022-04-28] MEDS ORDERED: MAGNESIUM OXIDE 400 MG TABLET PO SCH (09:00)
== END 2022-04-27 11:25 | disposition swing bed (61) | DRG 391 ==
LOC: N.ED 01:10 → N.EDINP 01:10 → SUATTDRO 05:01 → N.2E 16:10 → SUATTDRO 04-19 09:58
PROVIDERS: ADMIT Internal Medicine; ATTEND Hospitalist